=== PATIENT | female | born 1940 | race Caucasian/White ===

== ENCOUNTER 2019-07-29 10:13 | Outpatient (CLI) | payer MEDICARE, OTHER, SELFPAY ==
--- NOTE | 2019-07-29 10:14 | MM_ITS ---
WS: [id number] BILATERAL SCREENING DIGITAL MAMMOGRAM WITH CAD HISTORY: SCREENING COMPARISON: 07/22/2018 and 07/17/2017 Bilateral CC and MLO views submitted. Computer aided detection analyzed. Breast composition: There are scattered areas of fibroglandular density. No suspicious masses, microc alcifications or architectural distortion. Bilateral breast arterial calcifications. MM/[place] [id number] IMPRESSION: BI-RADS: 2-Benign FOLLOW UP: 1 Year Follow-up
== END 2019-07-29 10:14 | disposition home or self-care (01) ==
LOC: RADSHAW 10:13
PROVIDERS: Family Provider Family Medicine; PCP Registered Nurse; Visit Provider Registered Nurse
DX: Z12.31 Encounter for screening mammogram for malignant neoplasm of breast (principal)
CPT/HCPCS: 77067

== ENCOUNTER 2020-09-29 09:02 | Outpatient (CLI) | payer MEDICARE, OTHER, SELFPAY ==
--- NOTE | 2020-09-29 09:09 | MM_ITS ---
WS: [id number] BILATERAL SCREENING DIGITAL MAMMOGRAM WITH CAD HISTORY: SCREENING COMPARISON: 07/29/2019 and 04/14/2013 Bilateral CC and MLO views submitted. Computer aided detection analyzed. Breast composition: There are scattered areas of fibroglandular density. No suspicious masses, microc alcifications or architectural distortion. Bilateral breast arterial calcifications and scattered igor ign round calcifications. MM/[id number] IMPRESSION: BI-RADS: 2-Benign FOLLOW UP: 1 Year Follow-up
== END 2020-09-29 09:03 | disposition home or self-care (01) ==
LOC: RADSHAW 09:06
PROVIDERS: Family Provider Family Medicine; PCP Registered Nurse; Visit Provider Family Medicine
DX: Z12.31 Encounter for screening mammogram for malignant neoplasm of breast (principal)
CPT/HCPCS: 77067

== ENCOUNTER 2021-01-24 08:44 | Outpatient (RCR) | payer MEDICARE, OTHER, SELFPAY | END 2021-02-15 23:59 | disposition home or self-care (01) | LOC: SPT 08:44 | PROVIDERS: PCP Registered Nurse; Referring Provider Neurological Surgery; Visit Provider Neurological Surgery | DX: Z98.1 Arthrodesis status (principal) | CPT/HCPCS: 97110; 97162 ==

== ENCOUNTER 2021-02-16 06:00 | Outpatient (RCR) | payer MEDICARE, OTHER, SELFPAY | END 2021-03-18 23:59 | disposition home or self-care (01) | LOC: SPT 06:00 | PROVIDERS: PCP Registered Nurse; Visit Provider Neurological Surgery | DX: Z98.1 Arthrodesis status (principal) | CPT/HCPCS: 97110 ==

== ENCOUNTER 2021-02-22 10:34 | Outpatient (CLI) | payer MEDICARE, OTHER, SELFPAY ==
[2021-02-22 11:40] LABS: Alanine Aminotransferase 13 U/L (0-33); Aspartate Amino Transferase 15 U/L (0-32)
== END 2021-02-22 10:35 | disposition home or self-care (01) ==
PROVIDERS: PCP Registered Nurse; Visit Provider Podiatrist Foot & Ankle Surgery
DX: L60.3 Nail dystrophy (principal)
CPT/HCPCS: 84450; 84460

== ENCOUNTER → 2021-11-21 08:49 | Outpatient (BNVA) | payer MEDICARE, OTHER, SELFPAY | PROVIDERS: PCP Registered Nurse; Visit Provider Podiatrist Foot & Ankle Surgery | DX: E11.42 Type 2 diabetes mellitus with diabetic polyneuropathy (principal); B35.1 Tinea unguium; M21.611 Bunion of right foot; M21.612 Bunion of left foot | CPT/HCPCS: 99214 ==

== ENCOUNTER → 2022-02-14 13:19 | Outpatient (BNVA) | payer MEDICARE, OTHER, SELFPAY | PROVIDERS: PCP Family Medicine; Visit Provider Orthopaedic Surgery | DX: M48.062 Spinal stenosis, lumbar region with neurogenic claudication (principal); M47.816 Spondylosis without myelopathy or radiculopathy, lumbar region | CPT/HCPCS: 72120; 99204 ==

== ENCOUNTER → 2022-03-12 11:02 | Outpatient (BNVA) | payer MEDICARE, OTHER, SELFPAY | PROVIDERS: PCP Family Medicine; Visit Provider Orthopaedic Surgery | DX: M48.062 Spinal stenosis, lumbar region with neurogenic claudication (principal) | CPT/HCPCS: 99213 ==

== ENCOUNTER 2022-03-13 08:53 | Outpatient (CLI) | payer MEDICARE, OTHER, SELFPAY ==
--- NOTE | 2022-03-13 09:00 | MM_ITS ---
WS: [id number] SCREENING DIGITAL TOMOSYNTHESIS MAMMOGRAM WITH CAD HISTORY: SCREENING COMPARISON: 09/29/2020, 07/29/2019 Bilateral CC and MLO with tomosynthesis views submitted. Synthetic mammography reviewed. Computer aid ed detection analyzed. Breast composition: There are scattered areas of fibroglandular density. No suspicious masses, microc alcifications or architectural distortion. Densely calcified breast arteries. No suspicious mass or c alcification. MM/[place] [id number] IMPRESSION: BI-RADS: 2-Benign FOLLOW UP: 1 Year Follow-up
== END 2022-03-13 08:54 | disposition home or self-care (01) ==
PROVIDERS: PCP Family Medicine; Visit Provider Family Medicine
DX: Z12.31 Encounter for screening mammogram for malignant neoplasm of breast (principal)
CPT/HCPCS: 77063; 77067

== ENCOUNTER → 2022-04-01 08:55 | Outpatient (BNVA) | payer MEDICARE, OTHER, SELFPAY | PROVIDERS: PCP Family Medicine; Visit Provider Podiatrist Foot & Ankle Surgery | DX: B35.3 Tinea pedis (principal); E11.42 Type 2 diabetes mellitus with diabetic polyneuropathy; B35.1 Tinea unguium; M21.611 Bunion of right foot; M21.612 Bunion of left foot; E11.8 Type 2 diabetes mellitus with unspecified complications | CPT/HCPCS: 99204 ==

== ENCOUNTER 2022-06-11 10:22 | Outpatient (CLI) | payer MEDICARE, OTHER, SELFPAY ==
--- NOTE | 2022-06-11 10:32 | XR_ITS ---
WS: [email or web address] Exam: XR shoulder RT min 2V* [id number] Date/Time of Exam: 06/11/2022 10:41 AM Reason For Exam: CHRONIC R SHOULDER PAIN No acute fracture or dislocation. 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 Unremarkable soft tissues. XR/XR shoulder RT min 2V* [id number] IMPRESSION: 1. No fracture or dislocation. 2. 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
== END 2022-06-11 10:23 | disposition home or self-care (01) ==
PROVIDERS: PCP Family Medicine; Visit Provider Nurse Practitioner Family
DX: M19.011 Primary osteoarthritis, right shoulder (principal); G89.29 Other chronic pain
CPT/HCPCS: 73030

== ENCOUNTER → 2022-07-30 11:30 | Outpatient (BNVA) | payer MEDICARE, OTHER, SELFPAY | PROVIDERS: PCP Family Medicine; Visit Provider Podiatrist Foot & Ankle Surgery | DX: E11.42 Type 2 diabetes mellitus with diabetic polyneuropathy (principal); L60.8 Other nail disorders; B35.3 Tinea pedis; B35.1 Tinea unguium; M21.611 Bunion of right foot; M21.612 Bunion of left foot; E11.8 Type 2 diabetes mellitus with unspecified complications | CPT/HCPCS: 99214 ==

== ENCOUNTER 2022-09-03 14:06 | Outpatient (CLI) | payer MEDICARE, OTHER, SELFPAY ==
--- NOTE | 2022-09-03 14:24 | XR_ITS ---
WS: [email or web address] KUB, AP view, 09/03/2022 Clinical Data: CHRONIC IDIOPATHIC CONSTIPATION Comparison: None. Findings: No abnormal intraabdominal masses or calcifications are seen. There is no dilatated small bowel or ev idence of obstruction. There is a large amount of fecal material in the ascending colon. There is air in the small bowel and colon. XR/XR abdomen 1V* [id number] Impression: Moderate generalized ileus with large amount of fecal material in ascending col on.
== END 2022-09-03 14:07 | disposition home or self-care (01) ==
LOC: RAD 14:16
PROVIDERS: PCP Family Medicine; Visit Provider Nurse Practitioner Family
DX: K59.09 Other constipation (principal)
CPT/HCPCS: 74018

== ENCOUNTER → 2022-09-11 09:05 | Outpatient (BNVA) | payer MEDICARE, OTHER, SELFPAY | PROVIDERS: PCP Family Medicine; Visit Provider Dermatology | DX: Z48.02 Encounter for removal of sutures (principal) | CPT/HCPCS: 99024 ==

== ENCOUNTER → 2022-12-05 13:43 | Outpatient (BNVA) | payer MEDICARE, OTHER, SELFPAY | PROVIDERS: PCP Family Medicine; Visit Provider Dermatology | DX: L57.0 Actinic keratosis (principal); L82.1 Other seborrheic keratosis; L57.8 Other skin changes due to chronic exposure to nonionizing radiation; Z85.828 Personal history of other malignant neoplasm of skin | CPT/HCPCS: 17000; 99213 ==

== ENCOUNTER 2023-01-08 09:56 | Outpatient (CLI) | payer MEDICARE, OTHER, SELFPAY ==
--- NOTE | 2023-01-08 10:11 | XR_ITS ---
WS: [email or web address] EXAMINATION: XR chest 2V* [id number] REASON FOR EXAM: ACUTE BRONCHITIS DUE TO OTHER SPECIFIED ORGANISMS COMPARISON: 12/21/2010 ORDER DATE: 01/08/2023 10:13 AM FINDINGS: The lungs are clear of infiltrate. The cardiac and mediastinal outlines are unremarkable with athe rosclerotic aortic change. There are no significant pleural effusions . No significant abnormalities are noted in the spine or remainder of the bony thorax. IMPRESSION: NO ACUTE PULMONARY CHANGE.
== END 2023-01-08 09:57 | disposition home or self-care (01) ==
PROVIDERS: PCP Family Medicine; Visit Provider Nurse Practitioner Family
DX: J20.8 Acute bronchitis due to other specified organisms (principal)
CPT/HCPCS: 71046

== ENCOUNTER 2023-04-09 12:02 | Outpatient (CLI) | payer MEDICARE, OTHER, SELFPAY ==
--- NOTE | 2023-04-09 12:00 | MM_ITS ---
WS: [email or web address] BILATERAL SCREENING DIGITAL TOMOSYNTHESIS MAMMOGRAM WITH CAD HISTORY: SCREENING COMPARISON: 03/13/2022, 09/29/2020 and 07/29/2019 Bilateral CC and MLO views with tomosynthesis and synthetic mammography submitted. Computer aided det ection analyzed. Breast composition: There are scattered areas of fibroglandular density. No suspicious masses, microc alcifications or architectural distortion. Moderate benign bilateral breast arterial calcifications a nd round punctate calcifications. IMPRESSION: MM/[place] [id number] BI-RADS: 2-Benign FOLLOW UP: 1 Year Follow-up
== END 2023-04-09 12:03 | disposition home or self-care (01) ==
LOC: MOBLMAM 12:04
PROVIDERS: PCP Family Medicine; Visit Provider Family Medicine
DX: Z12.31 Encounter for screening mammogram for malignant neoplasm of breast (principal)
CPT/HCPCS: 77063; 77067

== ENCOUNTER 2023-05-27 10:49 | Observation (INO) | payer MEDICARE, OTHER, SELFPAY ==
[2023-05-27] VITALS (10 sets, daily range): BP systolic 130–189; BP diastolic 67–99; PULSE 50–90; RESP 12–18; TEMP 36.6–36.8; O2SAT 93–98; BMI 27.9
--- NOTE | 2023-05-27 11:00 | ECG_ITS ---
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 Measurements Intervals [place] Rate: 71 P: 14 [place]: 146 QRS: 10 QRSD: 82 T: 37 QT: 368 QTc: 402 Interpretive Statements SINUS RHYTHM POSSIBLE ANTERIOR MYOCARDIAL INFARCTION , PROBABLY OLD [30 ms Q WAVE IN V3/V4, OR R < 0.2 mV IN V4] No previous ECG available for comparison Electronically Signed On 05-27-2023 21:38:45 FLORAL SPECIALIST by Martha Sorto M.D. [id number]
--- NOTE | 2023-05-27 11:36 | XRR_ITS ---
PROCEDURE INFORMATION: Exam: XR Chest Exam date and time: 05/27/2023 12:19 PM Age: 82 years old Clinical indication: Pain; Left-sided; Additional info: Left sided cp and left shoulder pain TECHNIQUE: Imaging protocol: Radiologic exam of the chest. Views: 1 view. COMPARISON: CR XR chest 2V* [id number] 01/08/2023 10:14 AM FINDINGS: Lungs: Clear. Pleural spaces: No pleural effusion identified. Heart/Mediastinum: The heart is not enlarged. The mediastinum is not enlarged. Bones/joints: No acute osseous abnormality identified. Hardware related to previous cervical spinal surgery is partially visualized. XR/XR chest 1V portable [id number] IMPRESSION: No acute cardiopulmonary abnormality identified.
--- NOTE | 2023-05-27 11:36 | CT_ITS ---
WS: [email or web address] CT CERVICAL SPINE TECHNIQUE: Noncontrast CT of the cervical spine with coronal and sagittal reformatted images. CLINICAL INFORMATION: b/l fingers paresthesias and left shoulder pain COMPARISON: None. DLP: 182.[address] scans at [facility] use at least one of these dose optimization techniques: automated e xposure control; mA and/or kV adjustment per patient size (includes targeted exams where dose is matc hed to clinical indication); or iterative reconstruction. FINDINGS: Straightening of the normal cervical lordosis. Prior ACDF C4-5. Bony fusion C5-6. Slight anterolisth esis C7 on T1. Normal craniocervical junction. Normal C1-C2 articulation. Dens is normal in appearanc e. Normal occipital condyles. No high-grade spinal canal narrowing. Normal C1 ring. No evidence of ac [place] fracture or dislocation. C2-C3: Normal. C3-C4: Mild facet arthropathy. Mild RIGHT bony foraminal narrowing. Tiny central protrusion with mild central canal stenosis. C4-C5: Disc osteophytic ridging. Mild bilateral bony foraminal narrowing. Spinal canal is patent. C5-C6: Disc osteophytic ridging. Mild facet arthropathy. Spinal canal and foramen are patent. C6-C7: Disc osteophytic ridging. Mild central canal stenosis. Moderate LEFT and mild RIGHT bony trinh inal narrowing. C7-T1: Slight anterolisthesis. Spinal canal and foramen are patent. Visualized posterior nasopharynx: Normal. Prevertebral soft tissues: Normal. IMPRESSION: 1. Prior ACDF C4-C5 with interbody fusion graft. Hardware appears intact. Bony fusion C5-6. 2. Mild central canal stenosis C3-C4 with a small central disc protrusion. 3. Mild central canal stenosis C6-7. 4. Mild to moderate bony foraminal narrowing described above.
--- NOTE | 2023-05-27 11:38 | ED_ITS ---
HPI - Chest Pain 2 General: Chief Complaint: Chest Pain Stated Complaint: Cp, stroke symtomps Time Seen by Provider: 05/27/23 11:10 History of Present Illness: 82-year-old female presents the emergenc y department complaining of frequent intermittent sharp left-sided chest pain for the last 5 days or so. She also has a painful almost numb feeling around her left shoulder and left upper arm with paresthesias in her bilateral fingers. Patient reports the pain actually started with a sharp pain in the left upper quadrant radiating straight back to her left shoulder blade sometime last week on Friday or . She is fuzzy with the timeline but notes that after the sharp pain in the left upper quadrant going to the left shoulder blade region she then developed pain in the left shoulder and left upper chest. She reports no known aggravating or alleviating factors. She tried to most everything she could think of. She denies any shortness of breath, diaphoresis, vomiting. She notes that she did get nauseated at one point but thinks it was because she was fasting rather than related to the chest pain. She denies any palpitations, lightheadedness, pain with inspiration, hemoptysis, swelling, orthopnea, dyspnea on exertion, fever, chills, trauma, falls, rashes, wounds. She reports no known history of coronary artery disease but has it in her family. She also has a history of cervical spine stenosis and had to have a fusion a few years ago. During the review of systems she also endorses chronic constipation for over 1 year. She uses 1 tablespoon of MiraLAX in the morning and an equate [id number] stool softener at night. She feels like she is eating more than she is putting out. Nonetheless, she has not had any abdominal pain, bloating, or trouble passing gas. Associated symptoms: Deny abdominal pain, dyspnea, fever(s), syncope or vomiting Review of Systems 2 General: Reports: 10 or more systems reviewed and unremarkable except in HPI and below Const: Denies: fever(s), chills or body aches Eyes: Denies: change in vision ENMT: Denies: throat pain Card: Denies: edema or syncope Resp: Denies: dyspnea or productive cough GI: Denies: abdominal pain, vomiting or diarrhea : Denies: flank pain, dysuria or urinary frequency Musc: Denies: neck pain, back pain, extremity pain or extremity swelling Skin/Breast: Denies: rash or erythema Neuro: Denies: headache(s), weakness in extremities or lack of coordination PFSH ED 2 PFSH: Medical History Asthma History of malignant melanoma History of nonmelanoma skin cancer HTN (hypertension) Hyperlipidemia Hypothyroid Surgical History H/O: hysterectomy Social History Smoking and tobacco/nicotine status: never used tobacco/nicotine Alcohol intake: never Physical Exam 2 Narrative: EXAM NARRATIVE: This is a well-appearing nontoxic female who is sitting sideways on the bed holding herself up without any difficulty. She has a normal mental status and answers all of her own questions. No other historian. She reports no chest pain at this time. Examination is notable for cervical kyphosis, subjective tingling in her fingertips, subjective pain in the left shoulder. Examination of the chest shoulder and arms does not reveal any tenderness, wounds, rashes, swelling, trauma, or other signs of acute pathology. She is able to do fine motor movements normally. She does not have any tenderness of the C-spine but it is quite kyphotic. Examination of the abdomen is soft nontender, nondistended, without any tympany to percussion. No JVD, no crackles, no orthopnea on exam. no pitting edema. Const: COMMON NORMALS: no limitations, alert and well nourished EXAM LIMITATIONS: no altered mental status HENMT: COMMON NORMALS: normocephalic, atraumatic and external ears normal H EAD & SCALP: normocephalic and atraumatic EXTERNAL EAR: Yes external ears normal MOUTH: no muffled voice Eye: COMMON NORMALS: EOMs intact bilaterally, conjunctivae normal and no scleral icterus CONJUNCTIVA: Yes conjunctivae normal Neck/C-Spine: COMMON NORMALS: no JVD GENERAL: Yes normal visual inspection and Yes trachea midline Resp: COMMON NORMALS: normal respiratory effort, No use of accessory muscles and clear to auscultation bilaterally AUSCULTATION: clear to auscultation bilaterally Cardio: COMMON NORMALS: no JVD, regular rate and regular rhythm RATE: r egular rate RHYTHM: regular rhythm GI: COMMON NORMALS: Soft to palpation and non-tender PALPATION: Yes Soft to palpation and No Guarding due to palpation present (GI) Neuro: COMMON NORMALS: moves all extremities and no focal motor deficits S ENSORIUM/ORIENTATION: Yes alert SPEECH: speech normal Psych: COMMON NORMALS: mental status grossly normal, Normal thought process present, cooperative, normal affect and speech normal SPEECH: Yes normal speech THOUGHT PROCESS: Normal thought process present Skin: COMMON NORMALS: turgor normal and no jaundice GENERAL SKIN EXAM: t urgor normal Course 2 Vital Signs: Vital signs: Vital Signs Temperature 97.9 F 05/27/23 11:03 Pulse Rate 90 05/27/23 13:00 Respiratory Rate 18 05/27/23 13:00 Blood Pressure 170/99 05/27/23 13:00 Pulse Oximetry 98 05/27/23 13:00 Oxygen Delivery Me thod Room Air 05/27/23 13:00 MDM - Chest Pain Medical Decision Making Differential diagnosis is broad. The chest pain seems atypical for cardiac but she is also elderly and female so must consider atypical presentations. ACS will be placed on the differential diagnosis. Other considerations include occult pneumonia, neoplastic process, pleurisy, chest wall etiology, atypical pancreatitis, referred pain from the diaphragm, stomach, colon, esophagus. Cervical stenosis with associated claudication type pain in the shoulder and upper chest with tingling in the fingers. Of note, the patient's abdomen is soft, nontender, nondistended, no guarding, no masses. UPDATE [address] was some mild [address] changes. No comparison is available. Troponin is 13. Dimer negative. AST and ALT minimally elevated. Renal function normal. No significant electrolyte problems. Hemoglobin and white blood cell count normal. Chest x-ray AP upright within normal limits. CT cervical spine with expected findings but nothing critical. Patient has a heart score of 6. Most recent provocative testing was greater than 5 years ago. On reassessment she reports she has a ache in her chest rated as mild. Discussed potential causes of her chest pain as well as the ER findings. Discussed slightly abnormal EKG with no comparison. Discussed options such as outpatient referral and workup by cardiology versus observation admission and cardiology consultation for possible provocative testing. Patient reports that she would feel more comfortable with getting this worked up now, even if it turns out negative. I did discuss her cervical spine abnormalities and how there are other potential causes beyond cardiac etiology. Patient is aware of this. For her constipation, I have ordered 34 g of MiraLAX to start with. Discussed case with Dr. Valencia for admission Lab Data 05/27/23 11:40 05/27/23 11:40 Radiology Impressions Chest X-Ray 05/27/23 11:36 IMPRESSION: No acute cardiopulmonary abnormality identified. Laboratory Results WBC 6.74 10^3/uL (3.29-11.43) 05/27/23 11:40 RBC 5.11 10^6/uL (3.85-5.65) 05/27/23 11:40 Hgb 15.90 g/dL (11.27-16.99) 05/27/23 11:40 Hct 47.0 % (36-47) 05/27/23 11:40 MCV 92.0 fl (85-98) 05/27/23 11:40 MCH 31.1 pg (27-33) 05/27/23 11:40 MCHC 33.8 g/dL (30-55) 05/27/23 11:40 RDW 12.5 % (12.1-15.1) 05/27/23 11:40 Plt Count 198 10^3/cmm (157-399) 05/27/23 11:40 MPV 10.1 fL (7.4-10.4) 05/27/23 11:40 Neut % (Auto) 53.9 % 05/27/23 11:40 Lymph % (Auto) 31.5 % 05/27/23 11:40 [place] % (Auto) 7.4 % 05/27/23 11:40 Eos % (Auto) 5.6 % 05/27/23 11:40 Baso % (Auto) 1.5 % 05/27/23 11:40 Neut # (Auto) 3.63 10^3/uL (1.8-7.7) 05/27/23 11:40 Lymph # (Auto) 2.1 10^3/uL (0.8-4.8) 05/27/23 11:40 [place] # (Auto) 0.5 10^3/uL (0.2-0.9) 05/27/23 11:40 Eos # (Auto) 0.4 10^3/uL (0.0-0.8) 05/27/23 11:40 Baso # (Auto) 0.1 10^3/uL (0.0-0.1) 05/27/23 11:40 Nucleated RBC % (auto) 0 % 05/27/23 11:40 Nucleated RBCs # 0.0 /100WBC 05/27/23 11:40 D-Dimer 0.48 ug/mLFEU (0-0.59) 05/27/23 11:40 Sodium 139 mmol/L (136-145) 05/27/23 11:40 Potassium 4.0 mmol/L (3.5-5.1) 05/27/23 11:40 Chloride 103 mmol/L (98-107) 05/27/23 11:40 Carbon Dioxide 23 mmol/L (22-29) 05/27/23 11:40 Anion Gap 17.0 (5-19) 05/27/23 11:40 BUN 11 mg/dL (8-23) 05/27/23 11:40 Creatinine 0.6 mg/dL (0.5-0.9) 05/27/23 11:40 GFR Calculation Not Reportable 05/27/23 11:40 Glucose 120 mg/dL (65-115) H 05/27/23 11:40 Calculated Osmolality 289 mOsm/kg (285-295) 05/27/23 11:40 Calcium 9.8 mg/dL (8.5-10.5) 05/27/23 11:40 Total Bilirubin 0.7 mg/dL (0.15-1.2) 05/27/23 11:40 AST 48 U/L (0-32) H 05/27/23 11:40 ALT 50 U/L (0-33) H 05/27/23 11:40 Alkaline Phosphatase 95 U/L (35-105) 05/27/23 11:40 Troponin T Baseline 13 ng/L (0-10) H 05/27/23 11:40 NT-Pro-B Natriuret Pep 109 pg/mL (0-450) 05/27/23 11:40 Total Protein 7.2 g/dL (6.6-8.7) 05/27/23 11:40 Albumin 4.5 g/dL (3.5-5.2) 05/27/23 11:40 Globulin 2.7 g/dL (1.3-4.6) 05/27/23 11:40 Lipase 25 U/L (13-60) 05/27/23 11:40 All radiology interpretation(s) finalized by discharge ED provider radiology interpretation(s): EP interpretation: Portable chest x-ray AP upright was performed. Cardiomediastinal silhouette within normal limits, lung mcdonald normal, no pneumothorax, effusions, pulmonary edema. Osseous structures appear grossly normal. No air under the diaphragm visualized. CT cervical spine interpretation by radiologist: IMPRESSION: 1. Prior ACDF C4-C5 with interbody fusion graft. Hardware appears intact. Bony fusion C5-6. 2. Mild central canal stenosis C3-C4 with a small central disc protrusion. 3. Mild central canal stenosis C6-7. 4. Mild to moderate bony foraminal narrowing described above. HEART Score is 6. Patient reports she does have a history of an angiogram many many years ago. She does not know the results. She reports she is already called her provider team and they wanted her to get checked out in the emergency department. I talked to her about admission with cardiology consultation for possible stress test versus coronary CTA versus angiogram, etc. VS discharge and outpatient management. Patient reports she has been having so much discomfort that she like to go ahead and get it taken care of now. I have paged the hospitalist for admission. EKG Data EKG 1: Interpretation: EP interpretation: EKG obtained at 11 AM. Sinus rhythm, rate 71, minimal J- point depression in 1 and 2 and aVF and V5 and V6. Nonspecific T wave changes [address] segment elevations. Poor R wave progression may indicate prior anterior infarction. No ectopy. QTc normal. QRS narrow. No comparison EKG. Discharge Plan Discharge Patient Disposition: Placed in Observation Clinical Impression: Chest pain at rest, Chest pain with moderate risk for cardiac etiology, Abnormal ECG, ST segment depression, Chronic constipation Coding Level of Care Code ED Back Tender Fourdrinier for Zonia Sepulveda
--- NOTE | 2023-05-27 11:40 | PC.NURSE ---
Pt on bedside environmental monitoring specialist
[2023-05-27 11:57] LABS: Basophils # 0.1 10^3/uL (0.0-0.1); Basophils % 1.5 %; Eosinophils # 0.4 10^3/uL (0.0-0.8); Eosinophils % 5.6 %; Lymphocytes # 2.1 10^3/uL (0.8-4.8); Lymphocytes % 31.5 %; Mean Corpuscular HGB Conc 33.8 g/dL (30-55); Mean Corpuscular Hemoglobin 31.1 pg (27-33); Mean Platelet Volume 10.1 fL (7.4-10.4); Monocytes # 0.5 10^3/uL (0.2-0.9); Monocytes % 7.4 %; Neutrophils # 3.63 10^3/uL (1.8-7.7); Neutrophils % 53.9 %; Nucleated Red Blood Cells % 0 %; Platelet Count 198 10^3/cmm (157-399); Red Blood Count 5.11 10^6/uL (3.85-5.65); Red Cell Distribution Width 12.5 % (12.1-15.1); White Blood Count 6.74 10^3/uL (3.29-11.43)
--- NOTE | 2023-05-27 12:07 | ECG_ITS ---
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 Measurements Intervals [place] Rate: 59 P: 89 [place]: 168 QRS: -7 QRSD: 78 T: 8 QT: 385 QTc: 383 Interpretive Statements SINUS BRADYCARDIA POSSIBLE ANTERIOR MYOCARDIAL INFARCTION , PROBABLY OLD [30 ms Q WAVE IN V3/V4, OR R < 0.2 mV IN V4] Compared to ECG 05/27/2023 11:00:39 Sinus rhythm no longer present Myocardial infarct finding still present Electronically Signed On 05-27-2023 21:48:01 YARD MANAGER by Martha Sorto M.D. [id number]
[2023-05-27 12:15] LABS: D Dimer 0.48 ug/mLFEU (0-0.59)
[2023-05-27 12:20] LABS: Troponin(5th) Baseline 13 ng/L (0-10)
[2023-05-27 12:27] LABS: Alanine Aminotransferase 50 U/L (0-33); Albumin Level 4.5 g/dL (3.5-5.2); Alkaline Phosphatase 95 U/L (35-105); Aspartate Amino Transferase 48 U/L (0-32); Blood Urea Nitrogen 11 mg/dL (8-23); Calcium 9.8 mg/dL (8.5-10.5); Carbon Dioxide 23 mmol/L (22-29); Chloride 103 mmol/L (98-107); Globulin 2.7 g/dL (1.3-4.6); Glucose 120 mg/dL (65-115); Lipase 25 U/L (13-60); NT Pro B Type Natriuretic Pept 109 pg/mL (0-450); Osmolality Calculated 289 mOsm/kg (285-295); Sodium 139 mmol/L (136-145); Total Bilirubin 0.7 mg/dL (0.15-1.2); Total Protein 7.2 g/dL (6.6-8.7)
[2023-05-27] MEDS: aspirin 81 mg Chew Tablet 324 MG PO (13:22)
[2023-05-27] MEDS: polyethylene glycol 3350 Pkt 17 gm 34 GM PO (13:23)
[2023-05-27] MEDS: cloNIDine 0.1 mg Tablet PO (13:23)
[2023-05-27 13:40] LABS: Troponin 5 2HR 12.26 ng/L (0-10)
[2023-05-27 13:43] LABS: Troponin 5 2HR Delta -0.74 ABS# (0-10)
--- NOTE | 2023-05-27 15:17 | P.HP_ITS ---
Providers/Chief Complaint 2 Admitting Physician: Mary Valencia MD Primary Care Provider: Vilma Carter DO Chief Complaint: Cp, stroke symtomps History of Present Illness Mary Merida is a 82 year old female who presented to the emergency room with a chief complaint of chest pain. The pain started underneath her left breast and radiated to her left shoulder blade. The pain was constant for 3 or 4 days initially then began to come and go. It radiates into her neck and shoulder area at times. She describes it as an achiness, not really a pain. She did not try any qjqd-nwc-oyvaqtc pain relievers. With the discomfort bothering her as long as it has been she called her primary care provider Dr. Carter today who told her to come to the emergency room for further evaluation. Work-up in the emergency room showed some nonspecific changes on EKG and a baseline troponin of 13. Blood pressure was noted to be a little bit high. Also noted to be bradycardic. She received some aspirin and clonidine in the ER. She has a calculated heart score of 6. She has a known history of hypertension and hyperlipidemia along with borderline diabetes. Her sister had open heart surgery several years ago for heart disease. She is approximately 18 months older than Ms. Hernandez. With her age and presentation, request was made for further evaluation in the hospital setting. Mrs. Merida has no associated shortness of breath, chest pain, clamminess or diaphoresis. She has had a little bit of dizziness. No palpitations. Never had any symptoms quite like this. She denies fever, upper respiratory symptoms, cough. No pleuritic type chest pain. No orthopnea or PND. She has had some ankle edema at times but currently does not. No reports of any bleeding. No dysuria or urinary frequency. Today does have chronic constipation that has been worse lately and not really responding much to MiraLAX which she has been taking. Last bowel movement was a small amount of hard stool yesterday. She has had a colonoscopy in the past, which was normal. She does complain of significantly dry skin. Her weight has been fairly stable since she lost weight intentionally back in 2019. She is pretty sure that her thyroid function was checked in March by her PCP. She keeps an eye on her blood pressure and heart rate at home and says that they usually run pretty good. Her gait is chronically unstable. She uses a cane to walk around and hold onto garcia. She has a known peripheral neuropathy. She has a history neck surgery. Denies new issues with her neck. Has never hide identified radicular pain from her neck. She has some lumbar stenosis and did well with therapy not requiring any surgical intervention for pain related to that. This discomfort she is experiencing is unlike anything she is ever had before. Initial troponin 13. Twelve-lead EKG with only nonspecific changes but no priors for comparison. Mrs Merida lives alone but is able to attend to her activities of daily living without much assistance. When it is not cold out, she describes being active . Still drives. Review of Systems 2 General: Reports: Other (ROS as per HPI or as otherwise noted here) Medications/Allergies Home Medications Medication Instructions Recorded Confirmed Last Taken Type aspirin 81 mg tablet,delayed 81 mg PO DAILY 10/12/20 05/27/23 05/26/23 History release (Adult Aspirin Regimen) budesonide-formoterol HFA 80 2 puff inhalation BID 10/12/20 05/27/23 05/27/23 History mcg-4.5 mcg/actuation aerosol inhaler (Symbicort) hydrochlorothiazide 50 mg tablet 50 mg PO DAILY 10/12/20 05/27/23 05/27/23 History levothyroxine 75 mcg capsule 75 mcg PO DAILY 10/12/20 05/27/23 05/27/23 History brimonidine 0.2 % eye drops 1 drp ophthalmic (eye) Q8H 03/12/22 05/27/23 05/27/23 History timolol 0.5 % eye drops 1 drp ophthalmic (eye) BID 03/12/22 05/27/23 05/27/23 History atorvastatin 40 mg tablet 40 mg PO QPM 05/27/23 05/27/23 05/26/23 History fluticasone 250 mcg-salmeterol 50 1 ea inhalation BID 05/27/23 05/27/23 Unknown History mcg/dose blistr powdr for inhalation (Advair Diskus) latanoprost 0.005 % eye drops 1 drp ophthalmic (eye) QPM 05/27/23 05/27/23 05/26/23 History omega 3-yin-npk-fish oil 1,000 mg 1 cap PO DAILY 05/27/23 05/27/23 05/27/23 History (120 mg-180 mg) capsule (Fish Oil) Allergies Allergy/AdvReac Type Severity Reaction Status Date / Time gabapentin [From Neurontin] Allergy not Verified 05/27/23 11:03 function morphine Allergy rooms spin Verified 05/27/23 11:03 Sulfa (Sulfonamide Allergy rash Verified 05/27/23 11:03 Antibiotics) PFSH Acute 2 PFSH: Medical History (Updated 05/27/23 @ 18:26 by Mary Valencia MD) Peripheral neuropathy Glaucoma Borderline diabetes 2 para 2 History of nonmelanoma skin cancer History of malignant melanoma Asthma HTN (hypertension) Hypothyroid Hyperlipidemia Surgical History (Updated 05/27/23 @ 18:06 by Mary Valencia MD) History of neck surgery H/O: hysterectomy Family History (Updated 05/27/23 @ 18:15 by Mary Valencia MD) Sister History of open heart surgery Quadruple bypass by Dr. Helton in 2016 CAD (coronary artery disease) Other Heart disease Social History (Updated 05/27/23 @ 17:55 by Mary Valencia MD) Smoking and tobacco/nicotine status: never used tobacco/nicotine Alcohol intake: never Substance/Drug Use: never Additional social history: daughter lives in [place], uses a cane to ambulate Household members: none Vitals/I&O/Wt Last Vital Signs Temp 97.9 F 05/27/23 11:03 Pulse 53 L 05/27/23 14:30 Resp 15 05/27/23 14:30 BP 149/84 05/27/23 14:30 Pulse Ox 94 05/27/23 14:30 O2 Del Method Room Air 05/27/23 14:30 Weight last 48 hrs Weight 73.936 kg Physical Exam 2 Narrative: Patient is awake and alert, able to provide history. Normocephalic. Hair and make-up are noted. Oropharynx is clear. Neck is supple. No reproducible chest pain on palpation of shoulders or chest wall. Lungs are clear to auscultation bilaterally without any rales rhonchi or wheezes. Cardiovascular exam reveals a regular rhythm. Pulses are equal. Abdomen is soft. No pitting edema. Some chronic vascularity/stasis changes distally. Onychomycosis noted but brisk capillary refill. Data 05/27/23 11:40 05/27/23 11:40 Other Labs: Radiology Impressions Chest X-Ray 05/27/23 11:36 IMPRESSION: No acute cardiopulmonary abnormality identified. Cervical spine CT 05/27/2023 FINDINGS: Straightening of the normal cervical lordosis. Prior ACDF C4-5. Bony fusion C5- 6. Slight anterolisthesis C7 on T1. Normal craniocervical junction. Normal C1-C2 articulation. Dens is normal in appearance. Normal occipital condyles. No high- grade spinal canal narrowing. Normal C1 ring. No evidence of acute fracture or dislocation. C2-C3: Normal. C3-C4: Mild facet arthropathy. Mild RIGHT bony foraminal narrowing. Tiny central protrusion with mild central canal stenosis. C4-C5: Disc osteophytic ridging. Mild bilateral bony foraminal narrowing. Spinal canal is patent. C5-C6: Disc osteophytic ridging. Mild facet arthropathy. Spinal canal and foramen are patent. C6-C7: Disc osteophytic ridging. Mild central canal stenosis. Moderate LEFT and mild RIGHT bony foraminal narrowing. C7-T1: Slight anterolisthesis. Spinal canal and foramen are patent. Visualized posterior nasopharynx: Normal. Prevertebral soft tissues: Normal. IMPRESSION: 1. Prior ACDF C4-C5 with interbody fusion graft. Hardware appears intact. Bony fusion C5-6. 2. Mild central canal stenosis C3-C4 with a small central disc protrusion. 3. Mild central canal stenosis C6-7. 4. Mild to moderate bony foraminal narrowing described above. Laboratory Results WBC 6.74 10^3/uL (3.29-11.43) 05/27/23 11:40 RBC 5.11 10^6/uL (3.85-5.65) 05/27/23 11:40 Hgb 15.90 g/dL (11.27-16.99) 05/27/23 11:40 Hct 47.0 % (36-47) 05/27/23 11:40 MCV 92.0 fl (85-98) 05/27/23 11:40 MCH 31.1 pg (27-33) 05/27/23 11:40 MCHC 33.8 g/dL (30-55) 05/27/23 11:40 RDW 12.5 % (12.1-15.1) 05/27/23 11:40 Plt Count 198 10^3/cmm (157-399) 05/27/23 11:40 MPV 10.1 fL (7.4-10.4) 05/27/23 11:40 Neut % (Auto) 53.9 % 05/27/23 11:40 Lymph % (Auto) 31.5 % 05/27/23 11:40 [place] % (Auto) 7.4 % 05/27/23 11:40 Eos % (Auto) 5.6 % 05/27/23 11:40 Baso % (Auto) 1.5 % 05/27/23 11:40 Neut # (Auto) 3.63 10^3/uL (1.8-7.7) 05/27/23 11:40 Lymph # (Auto) 2.1 10^3/uL (0.8-4.8) 05/27/23 11:40 [place] # (Auto) 0.5 10^3/uL (0.2-0.9) 05/27/23 11:40 Eos # (Auto) 0.4 10^3/uL (0.0-0.8) 05/27/23 11:40 Baso # (Auto) 0.1 10^3/uL (0.0-0.1) 05/27/23 11:40 Nucleated RBC % (auto) 0 % 05/27/23 11:40 Nucleated RBCs # 0.0 /100WBC 05/27/23 11:40 D-Dimer 0.48 ug/mLFEU (0-0.59) 05/27/23 11:40 Sodium 139 mmol/L (136-145) 05/27/23 11:40 Potassium 4.0 mmol/L (3.5-5.1) 05/27/23 11:40 Chloride 103 mmol/L (98-107) 05/27/23 11:40 Carbon Dioxide 23 mmol/L (22-29) 05/27/23 11:40 Anion Gap 17.0 (5-19) 05/27/23 11:40 BUN 11 mg/dL (8-23) 05/27/23 11:40 Creatinine 0.6 mg/dL (0.5-0.9) 05/27/23 11:40 GFR Calculation Not Reportable 05/27/23 11:40 Glucose 120 mg/dL (65-115) H 05/27/23 11:40 Calculated Osmolality 289 mOsm/kg (285-295) 05/27/23 11:40 Calcium 9.8 mg/dL (8.5-10.5) 05/27/23 11:40 Total Bilirubin 0.7 mg/dL (0.15-1.2) 05/27/23 11:40 AST 48 U/L (0-32) H 05/27/23 11:40 ALT 50 U/L (0-33) H 05/27/23 11:40 Alkaline Phosphatase 95 U/L (35-105) 05/27/23 11:40 Troponin T Baseline 13 ng/L (0-10) H 05/27/23 11:40 NT-Pro-B Natriuret Pep 109 pg/mL (0-450) 05/27/23 11:40 Total Protein 7.2 g/dL (6.6-8.7) 05/27/23 11:40 Albumin 4.5 g/dL (3.5-5.2) 05/27/23 11:40 Globulin 2.7 g/dL (1.3-4.6) 05/27/23 11:40 Lipase 25 U/L (13-60) 05/27/23 11:40 A&P Assessment and plan (1) Chest pain: Precordial chest pain with both typical and atypical features. She has nonspecific EKG changes and significant family history with her sister of a similar age having had quadruple bypass a few years ago. She has risk factors of hypertension and hyperlipidemia as well as borderline diabetes diagnosis. In addition to coronary vascular etiology of her symptoms, differential includes other vascular process, musculoskeletal both in the shoulder region and potentially from neck. Referred pain from abdominal source could also be considered with her worsening constipation though I do not get a sense that this is necessarily new. She has not had any associated symptoms with the discomfort and other than transient bradycardia and at times suboptimally controlled blood pressures vitals have been okay. (2) HTN (hypertension): Primary hypertension, chronically on hydrochlorothiazide, reports adequate blood pressure control when checked at home (3) Hyperlipidemia: Chronically on statin therapy along with fish oil (4) Borderline diabetes: By history, not on any medications. Blood sugars 120 today. (5) Peripheral neuropathy: Type unknown but involves hands and feet with feet most prominently affected. Walks with a cane. I suspect it is related to her borderline diabetes diagnosis. No recent change. (6) Hypothyroid: Acquired, on chronic levothyroxine. Believes last level check was in March and does not recall being notified of concerning results. (7) Glaucoma: Specific type of glaucoma not known. On several different eyedrops for management. Has chronically red eyes. No acute eye pain. (8) Chronic constipation: Chronically takes [id number]-xqzxbwp MiraLAX daily when needed. Progressively worsening issue for her. (9) Asthma: Has inhalers as needed, not acutely symptomatic. Plan Transient bradycardia, may be related to clonidine, but noted in past as well, only beta blockade is timolol opthalmic Mild elevation in tranaminases, normal BNP, may be related to medications such as statin, no recent labs for comparison Observation admission Continue serial cardiac enzymes and EKG Will check echocardiogram and gallant in order stress testing tomorrow given symptom presentation, risk factors and family history With peripheral neuropathy her gait is not very stable so Lexiscan ordered Continue home aspirin and statin therapy Given age and current complaints may want to consider change of antihypertensive agent but will wait and see results of stress testing and other workup before deciding Took hydrochlorothiazide today, further dosing currently held pending above Will check A1c and lipid panel If repeat blood sugars are elevated in the morning can consider some low-dose insulin but for now we will just watch Check TSH Continue current levothyroxine dosing Will continue home eyedrops Add scheduled and as needed laxative therapy monitoring response As needed breathing treatments Will be on telemetry monitoring Recheck liver enzymes in the morning VTE prophylaxis: Lovenox ordered GI Prophylaxis: PPI on chronically at home Telemetry: Currently ordered due to presentation Morales: not currently indicated Line(s): peripheral IVs Disposition plan: Home with outpatient follow up to primary care provider for recheck of blood pressure, potentially transaminases, blood sugar and ongoing symptoms. Depending on clinical course may need to follow-up with cardiology. Potentially may need adjustments to antihypertensive regimen. Code Status: Full Code currently Patient indicated that future code status would depend on her overall prognosis and if she were not able to talk and communicate with her family or care for herself she would probably not want that. Supportive care otherwise Findings, concerns and plans were discussed with patient and she was given an opportunity to ask questions Attestations 2 Medical Necessity Statement*: Currently anticipate a stay less than two midnights in this patient presenting with chest pain who has significant family history with her sister having had quadruple bypass surgery a few years ago along with personal history of hypertension and hyperlipidemia, borderline diabetes. Pain has both typical and atypical features with baseline troponin just above stated normal range and some nonspecific EKG changes. She is being admitted overnight for further monitoring, treatment as indicated and planned cardiac testing in the morning if remains stable. Other issues and plans as described. Coding Level of Care Code 39148 Moderate Time for a total of 60 minutes, includes reviewing past or interval history, examining/interviewing patient, placing orders, discussing plan of care with staff and documenting encounter Diagnoses Chest pain R07.9 HTN (hypertension) I10 Hyperlipidemia E78.5 Borderline diabetes R73.03 Peripheral neuropathy G62.9 Hypothyroid E03.9 Glaucoma H40.9 Chronic constipation K59.09 Asthma J45.909
--- NOTE | 2023-05-27 15:26 | ECG_ITS ---
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 Interpretive Statements NAME OF STUDY: LEXISCAN SESTAMIBI STRESS TEST INDICATION: Chest Pain; ekg changes; bradycardia PROCEDURE: At the baseline, the EKG revealed normal sinus rhythm with a normal ST Ts. Poor R wave progression. Nonspecific T wave changes. The baseline heart was 66 bpm with a blood pressue of 143/69 mm of Hg Lexiscan was infused over a period of 20 seconds. A total of 0.4 milligrams of Lexiscan was infused. The stress phase was continued for a total of 5 minutes. Heart rate at the end of the stress phase was 85 bpm with a blood pressure 134/62 mm of Hg. The EKG at the peak infusion revealed no significant changes. Sestamibi was injected 20 seconds after the Lexiscan infusion. Heart rate at the end of the recovery phase was 79 bpm with a blood pressure of 125/57 mm of Hg. CONCLUSION: 1. No significant EKG changes with the LexiScan infusion 2. No LexiScan induced chest pain or cardiac arrhythmia 3. Normal blood pressure and heart rate response 4. Sestamibi/sestamibi perfusion scan pending; see separate report. Electronically Signed On 05-30-2023 16:01:33 WIRE TWISTING MACHINE OPERATOR by Martha Sorto M.D. [id number]
--- NOTE | 2023-05-27 15:28 | USCV_ITS ---
Mary Merida Age: 82 Gender: F : 1940 Exam Date: 05/27/2023 18:19 Ordering Phys: Mary Valencia MD Technologist: JOSE Exam Location: [facility] Indication: chest pain, nonspecific ekg changes, bradycardia. No history of cardiac intervention per patient. BP: 135 / 67 HR: 57 Rhythm: Sinus Technical Quality: Adequate MEASUREMENTS (Male / Female) Normal Values 2D ECHO LV Diastolic Diameter PLAX 3.6 cm 4.2 - 5.9 / 3.9 - 5.3 cm LV Systolic Diameter PLAX 2.3 cm IVS Diastolic Thickness 1.4 cm 0.6 - 1.0 / 0.6 - 0.9 cm IVS Systolic Thickness 1.6 cm LVPW Diastolic Thickness 1.1 cm 0.6 - 1.0 / 0.6 - 0.9 cm LVPW Systolic Thickness 1.4 cm LVOT Diameter 1.7 cm LV Ejection Fraction 2D Teich 69.1 % LV Ejection Fraction MOD 2C 56.3 % LV Ejection Fraction 2C AL 56.1 % LA Diameter 3.0 cm LA Width 3.2 cm LA Height 4.9 cm RA Width 2.9 cm RA Height 4.6 cm Aorta at Sinotubular Diameter 2.9 cm IVC Diameter 1.4 cm M-MODE Aortic Annulus Diameter 2.9 cm LA Ao Ratio MM 1.0 MV E Point Septal Separation 0.5 cm DOPPLER AV Peak Velocity 106.0 cm/s LVOT Peak Velocity 73.0 cm/s AV Area Cont Eq vti 1.5 cm squared AV Area Cont Eq pk 1.6 cm squared MV Peak Velocity 101.0 cm/s MV Area PHT 3.1 cm squared Mitral E to A Ratio 0.8 MV E' Velocity 39.0 cm/s Mitral E to MV E' Ratio 11.4 Mitral E to LV E' Lateral Ratio 11.7 Mitral E to LV E' Septal Ratio 11.0 TR Peak Velocity 235.0 cm/s TR Peak Gradient 22.1 mmHg TV Peak E Velocity 35.0 cm/s Right Atrial Pressure 5.0 mmHg Pulmonary Artery Systolic Pressu 27.1 mmHg PV Peak Velocity 72.0 cm/s RV Acceleration Time 0.1 s RV Ejection Time 0.3 s RV AcT/ET 0.3 FINDINGS Left Ventricle Left ventricle is normal size. LV systolic function is normal with EF 55 to 60%. No regional wall motion abnormalities are seen. Grade 1 diastolic function. Right Ventricle Normal in size and function. Right Atrium Normal in size Left Atrium Normal in size Mitral Valve Structurally normal mitral valve. Trace mitral regurgitation Aortic Valve Structurally normal aortic valve.No significant stenosis or regurgitation. Tricuspid Valve Mild tricuspid regurgitation. Insufficient TR jet to calculate RVSP. Pulmonic Valve Not well visualized Pericardium Normal Aorta Normal in size IVC Normal in size CONCLUSIONS LV systolic function is normal with EF 55 to 60%. Grade 1 diastolic dysfunction. Trace mitral regurgitation. Mild tricuspid regurgitation. No comparison studies are available. Kalyan Muro MD (Electronically Signed) Final Date: 28 May 2023 12:03 S
[2023-05-27] MEDS: atorvastatin 40 mg Tablet PO (17:24)
[2023-05-27] MEDS: enoxaparin 40 mg/0.4 mL Syringe SUBCUT (17:24)
[2023-05-27] MEDS: latanoprost 0.005% Op Soln 2.5 mL Btl 1 DROP OPHTHALMIC (17:24)
[2023-05-27] MEDS: brimonidine 0.2% Op Soln 5 mL Btl 1 DROP EYE-BOTH (17:24)
[2023-05-27] MEDS: sodium chlor 0.9% + KCl 20 mEq 20 MEQ/1,000 ML BAG 75 MEQ IV (17:33)
--- NOTE | 2023-05-27 17:36 | ECG_ITS ---
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 Measurements Intervals [place] Rate: 58 P: 40 OK: 184 QRS: -22 QRSD: 84 T: -3 QT: 406 QTc: 399 Interpretive Statements SINUS BRADYCARDIA MODERATE VOLTAGE CRITERIA FOR LVH, CONSIDER NORMAL VARIANT [MEETS CRITERIA IN ONE OF: R(aVL), S(V1), R(V5), R(V5/V6)+S(V1)] POSSIBLE ANTERIOR MYOCARDIAL INFARCTION , PROBABLY OLD [30 ms Q WAVE IN V3/V4, OR R < 0.2 mV IN V4] Compared to ECG 05/27/2023 12:07:04 No significant changes Electronically Signed On 05-27-2023 21:52:01 APPETIZER PACKER by Martha Sorto M.D. [id number]
[2023-05-27 21:05] LABS: Troponin 5 6HR 12.15 ng/L (0-10)
[2023-05-27 21:11] LABS: Troponin 5 6HR Delta -0.85 ng/L (0-12)
[2023-05-27] MEDS: albuterol 2.5 mg/3 mL Neb INHALATION (22:09)
[2023-05-27] MEDS: budesonide 0.5 mg/2 mL Neb INHALATION (22:09)
[2023-05-28] VITALS: BP 160/77; PULSE 56; RESP 17; TEMP 36.5; O2SAT 96
[2023-05-28 04:00] VITALS: BP 151/81; PULSE 58; RESP 17; TEMP 36.6; O2SAT 97
[2023-05-28] MEDS: brimonidine 0.2% Op Soln 5 mL Btl 1 DROP EYE-BOTH ×2 (05:23→09:50)
[2023-05-28] MEDS: latanoprost 0.005% Op Soln 2.5 mL Btl 1 DROP OPHTHALMIC (05:24)
[2023-05-28] MEDS: levothyroxine 75 mcg Tablet PO (05:24)
[2023-05-28] MEDS: sodium chlor 0.9% + KCl 20 mEq 20 MEQ/1,000 ML BAG 75 MEQ IV (05:27)
[2023-05-28 06:06] LABS: Estmated Average Glucose 148; Hemoglobin A1C 6.8 % (4.0-6.0)
[2023-05-28 06:22] LABS: Alanine Aminotransferase 44 U/L (0-33); Albumin Level 3.6 g/dL (3.5-5.2); Alkaline Phosphatase 74 U/L (35-105); Anion Gap 12.9 (5-19); Aspartate Amino Transferase 43 U/L (0-32); Blood Urea Nitrogen 10 mg/dL (8-23); Calcium 9.1 mg/dL (8.5-10.5); Carbon Dioxide 23 mmol/L (22-29); Chloride 108 mmol/L (98-107); Globulin 2.6 g/dL (1.3-4.6); Glucose 109 mg/dL (65-115); Magnesium 2.1 mg/dL (1.7-2.3); Osmolality Calculated 290 mOsm/kg (285-295); Phosphorus 3.4 mg/dL (2.5-4.5); Potassium 3.9 mmol/L (3.5-5.1); Sodium 140 mmol/L (136-145); Thyroid Stimulating Hormone 2.36 uIU/mL (0.27-4.20); Total Bilirubin 0.7 mg/dL (0.15-1.2); Total Protein 6.2 g/dL (6.6-8.7)
[2023-05-28 06:27] LABS: Chol HDL Ratio 2.66 mg/dL (0.0-4.40); Cholesterol 154 mg/dL (0-200); HDL Cholesterol 58 mg/dL (60-100); LDL Cholesterol Calculated 71 mg/dL (50-129); LDL HDL Ratio 1.22 RATIO (0.00-3.22); Triglycerides 126 mg/dL (0-150)
--- NOTE | 2023-05-28 08:00 | NMCV_ITS ---
NM olivier perf SPECT r/s* [id number] Mary Merida Age: 82 Gender: F : 1940 Exam Date: 05/28/2023 08:00 Ordering Phys: Mary Valencia MD Technologist: DHARMESH Tomas Exam Location: [facility] Indications: CHEST PAIN STRESS TEST Please see separate stress test report in [facility] for full findings IMAGE PROTOCOL Rest/Stress 1 Lexiscan Day Radiopharmaceutical Dose (mCi) Administration Site Administered by Rest: Tc-99m 10.3 IV DHARMESH Mcpherson Sestamibi Stress:Tc-99m 32.6 IV DHARMESH Mcpherson Sestamibi Rest: 28-May-2023 60 Discovery 630 Stress: 28-May-2023 30 Discovery 630 0.4mg Lexiscan. Images obtained in supine and prone position. SPECT RESULTS Technical Quality: Excellent Raw Data Analysis: Normal Image Corrections: No attenuation or motion correction applied Summed Stress Score: 3 Summed Rest Score: 4 Summed Difference Score: 1 PERFUSION FINDINGS Small to moderate area of slightly decreased tracer uptake was noted in the mid inferolateral, apical inferior and LV apex. Subtle area of eversibility was noted in the apical inferior region FUNCTIONAL RESULTS (calculated via Gated SPECT) Stress Image LV EF (%): 68 Stress EDV (mL):80 TID: 0.98 Stress ESV (mL):26 FUNCTIONAL FINDINGS: Segmental wall motion analysis revealing no gross wall motion abnormalities IMPRESSIONS 1. Myocardial perfusion imaging revealing small to moderate area of slightly decreased tracer uptake involving the mid inferolateral, apical inferior and LV apex. Subtle area of reversibility was noted in the apical inferior region. 2. LV ejection fraction estimated to be 68%. 3. LV wall motion analysis revealing no gross wall motion abnormalities. 4. Normal LV volume No similar previous studies are available for comparison Dr Martha Sorto MD [facility] (Electronically Signed) Final Date: 28 May 2023 13:31 S
[2023-05-28] MEDS: regadenoson 0.4 Mg/5 ml Syringe IVP (08:31)
[2023-05-28 09:48] VITALS: BP 111/59; PULSE 79
[2023-05-28 09:49] VITALS: BP 179/87; PULSE 63; RESP 18; TEMP 36.5; O2SAT 96
[2023-05-28] MEDS: pantoprazole DR 40 mg Tablet PO (09:49)
[2023-05-28] MEDS: sennosides-docusate Tablet 1 TAB PO (09:49)
[2023-05-28] MEDS: aspirin 81 mg EC Tablet PO (09:49)
[2023-05-28] MEDS: polyethylene glycol 3350 Pkt 17 gm PO (09:49)
[2023-05-28] MEDS: timolol 0.5% Op Soln 5 mL Btl 1 DROP EYE-BOTH (09:51)
[2023-05-28 11:25] VITALS: BP 169/78; PULSE 64; RESP 18; TEMP 36.4; O2SAT 96
--- NOTE | 2023-05-28 12:12 | PM.DCS ---
Discharge Providers Date of Admission: 05/27/23 15:31 Date of Discharge: May 28, 2023 Attending Provider at Admission: Mary Valencia MD Attending Provider at Discharge: Sol Juares MD Primary Care Provider: Vilma Carter DO Diagnoses at Discharge Discharge Diagnosis (1) Chest pain: Status: Acute (2) HTN (hypertension): Status: Chronic (3) Hyperlipidemia: Status: Chronic (4) Borderline diabetes: Status: Acute (5) Peripheral neuropathy: Status: Acute (6) Hypothyroid: Status: Chronic (7) Glaucoma: Status: Acute (8) Chronic constipation: Status: Chronic (9) Asthma: Status: Chronic Reason for Visit Reason for Visit: Cp, stroke symtomps Hospital Course Hospital Course 82-year female who was admitted for management evaluation of chest discomfort, patient was also experiencing discomfort in her neck she has history of cervical spine fusion, remained stable overnight, stress test was done in the morning, she has remained hypertensive throughout her hospitalization 169/70 elevated mercury blood pressure after stress test she has not received her home medication of hydrochlorothiazide, will add lisinopril 20 mg daily, hemoglobin A1c 6.8 she does have diabetic peripheral neuropathy, I do not have a GFR on this visit however she seems to have chronic kidney disease stage II considering previous GFR level, I will have her PCP reevaluate antihyperglycemic agents most likely she will benefit from metformin Patient is full code, lives alone able to attend to her daily needs, daughter checks on her, echo showing preserved ejection fraction grade 1 diastolic function no wall motion abnormality Physical Exam Narrative: Euvolemic Awake and alert GCS 15 S1, S2 Abdomen soft Nonfocal neuroexam Discharge Data Studies Completed and Pending Completed Studies During Hospitalization Category Date Time Status CT cervical spin wo con* [id number] Stat Cat Scan 05/27/23 11:36 Completed Sestamibi Stress Test Request Stat Exams 05/27/23 15:26 Draft XR chest 1V portable [id number] Stat Exams 05/27/23 11:36 Completed CV. echo complete* [id number] Routine Ultrasound 05/27/23 15:28 Completed Pending at discharge Category Date Time Status Sestamibi Stress Test Request Routine Exams 05/27/23 15:29 Ordered Sestamibi Stress Test Request Stat Exams 05/27/23 15:28 Stop Req NM olivier perf SPECT r/s* [id number] Routine Nuc Med 05/28/23 08:00 Taken Radiology Impressions Chest X-Ray 05/27/23 11:36 IMPRESSION: No acute cardiopulmonary abnormality identified. Laboratory Results WBC 6.74 10^3/uL (3.29-11.43) 05/27/23 11:40 RBC 5.11 10^6/uL (3.85-5.65) 05/27/23 11:40 Hgb 15.90 g/dL (11.27-16.99) 05/27/23 11:40 Hct 47.0 % (36-47) 05/27/23 11:40 MCV 92.0 fl (85-98) 05/27/23 11:40 MCH 31.1 pg (27-33) 05/27/23 11:40 MCHC 33.8 g/dL (30-55) 05/27/23 11:40 RDW 12.5 % (12.1-15.1) 05/27/23 11:40 Plt Count 198 10^3/cmm (157-399) 05/27/23 11:40 MPV 10.1 fL (7.4-10.4) 05/27/23 11:40 Neut % (Auto) 53.9 % 05/27/23 11:40 Lymph % (Auto) 31.5 % 05/27/23 11:40 [place] % (Auto) 7.4 % 05/27/23 11:40 Eos % (Auto) 5.6 % 05/27/23 11:40 Baso % (Auto) 1.5 % 05/27/23 11:40 Neut # (Auto) 3.63 10^3/uL (1.8-7.7) 05/27/23 11:40 Lymph # (Auto) 2.1 10^3/uL (0.8-4.8) 05/27/23 11:40 [place] # (Auto) 0.5 10^3/uL (0.2-0.9) 05/27/23 11:40 Eos # (Auto) 0.4 10^3/uL (0.0-0.8) 05/27/23 11:40 Baso # (Auto) 0.1 10^3/uL (0.0-0.1) 05/27/23 11:40 Nucleated RBC % (auto) 0 % 05/27/23 11:40 Nucleated RBCs # 0.0 /100WBC 05/27/23 11:40 D-Dimer 0.48 ug/mLFEU (0-0.59) 05/27/23 11:40 Sodium 140 mmol/L (136-145) 05/28/23 05:41 Potassium 3.9 mmol/L (3.5-5.1) 05/28/23 05:41 Chloride 108 mmol/L (98-107) H 05/28/23 05:41 Carbon Dioxide 23 mmol/L (22-29) 05/28/23 05:41 Anion Gap 12.9 (5-19) 05/28/23 05:41 BUN 10 mg/dL (8-23) 05/28/23 05:41 Creatinine 0.5 mg/dL (0.5-0.9) 05/28/23 05:41 GFR Calculation Not Reportable 05/28/23 05:41 Glucose 109 mg/dL (65-115) 05/28/23 05:41 Estimat Average Glucose 148 05/28/23 05:41 Hemoglobin A1c 6.8 % (4.0-6.0) H 05/28/23 05:41 Calculated Osmolality 290 mOsm/kg (285-295) 05/28/23 05:41 Calcium 9.1 mg/dL (8.5-10.5) 05/28/23 05:41 Phosphorus 3.4 mg/dL (2.5-4.5) 05/28/23 05:41 Magnesium 2.1 mg/dL (1.7-2.3) 05/28/23 05:41 Total Bilirubin 0.7 mg/dL (0.15-1.2) 05/28/23 05:41 AST 43 U/L (0-32) H 05/28/23 05:41 ALT 44 U/L (0-33) H 05/28/23 05:41 Alkaline Phosphatase 74 U/L (35-105) 05/28/23 05:41 Troponin T Baseline 13 ng/L (0-10) H 05/27/23 11:40 Troponin T 120 Minute 12.26 ng/L (0-10) H 05/27/23 13:18 Delta Troponin T -0.74 ABS# (0-10) L 05/27/23 13:18 Troponin T Hi Sens 6Hr 12.15 ng/L (0-10) H 05/27/23 20:29 Troponin T Hi Sens 6Hr Delta -0.85 ng/L (0-12) L 05/27/23 20:29 NT-Pro-B Natriuret Pep 109 pg/mL (0-450) 05/27/23 11:40 Total Protein 6.2 g/dL (6.6-8.7) L 05/28/23 05:41 Albumin 3.6 g/dL (3.5-5.2) 05/28/23 05:41 Globulin 2.6 g/dL (1.3-4.6) 05/28/23 05:41 Triglycerides 126 mg/dL (0-150) 05/28/23 05:41 Cholesterol 154 mg/dL (0-200) 05/28/23 05:41 LDL Cholesterol, Calc 71 mg/dL (50-129) 05/28/23 05:41 HDL Cholesterol 58 mg/dL (60-100) L 05/28/23 05:41 LDL/HDL Ratio 1.22 RATIO (0.00-3.22) 05/28/23 05:41 Cholesterol/HDL Ratio 2.66 mg/dL (0.0-4.40) 05/28/23 05:41 Lipase 25 U/L (13-60) 05/27/23 11:40 TSH 2.36 uIU/mL (0.27-4.20) 05/28/23 05:41 Vitals Last Vital Signs Temp 97.6 F 05/28/23 11:25 Pulse 64 05/28/23 11:25 Resp 18 05/28/23 11:25 BP 169/78 05/28/23 11:25 Pulse Ox 96 05/28/23 11:25 O2 Del Method Room Air 05/28/23 11:25 Discharge Plan Discharge Patient Disposition: Home Condition: Stable Prescriptions: New sennosides-docusate sodium [Stool Softener-Laxative] 8.6-50 mg Tablet 1 tab PO BID Qty: 10 0RF lisinopril 20 mg Tablet 20 mg PO DAILY Qty: 60 3RF metformin 500 mg tablet 500 mg PO BID Qty: 60 0RF Continued budesonide-formoterol [Symbicort] 80-4.5 mcg/actuation HFA aerosol inhaler 2 puff inhalation BID hydrochlorothiazide 50 mg tablet 50 mg PO DAILY levothyroxine 75 mcg capsule 75 mcg PO DAILY aspirin [Adult Aspirin Regimen] 81 mg tablet,delayed release (DR/EC) 81 mg PO DAILY timolol 0.5 % drops 1 drp ophthalmic (eye) BID brimonidine 0.2 % drops 1 drp ophthalmic (eye) Q8H latanoprost 0.005 % Drops 1 drp OPHTHALMIC (EYE) QPM atorvastatin 40 mg tablet 40 mg PO QPM Advair Diskus 250-50 mcg/dose blister with device 1 ea INHALATION BID Fish Oil 1,000 mg (120 mg-180 mg) Capsule 1 cap PO DAILY Referrals: Vilma Carter DO [Primary Care Provider] - Patient Instructions: Opioid Safety Discharge Attestations Time Spent in Discharge Care*: greater than 30 min Quality Metrics Clinical Quality Measures [ No reported AMI, CVA or VTE this stay] Coding Level of Care Code Acute Code for Chg Fwd Diagnoses Chest pain R07.9 HTN (hypertension) I10 Hyperlipidemia E78.5 Borderline diabetes R73.03 Peripheral neuropathy G62.9 Hypothyroid E03.9 Glaucoma H40.9 Chronic constipation K59.09 Asthma J45.909
[2023-05-28 14:29] VITALS: BP 169/78; PULSE 64; RESP 18; TEMP 36.4; O2SAT 96
== END 2023-05-28 14:29 | disposition home or self-care (01) ==
LOC: ER 14:41 → MEDSURG 15:31
PROVIDERS: Admitting Provider Hospitalist; Emergency Provider Emergency Medicine; PCP Family Medicine; Visit Provider Internal Medicine
DX: R07.89 Other chest pain (principal); R00.1 Bradycardia, unspecified; I10 Essential (primary) hypertension; E78.5 Hyperlipidemia, unspecified; R73.03 Prediabetes; G62.9 Polyneuropathy, unspecified; E03.9 Hypothyroidism, unspecified; H40.9 Unspecified glaucoma; K59.09 Other constipation; J45.909 Unspecified asthma, uncomplicated; I07.1 Rheumatic tricuspid insufficiency; M25.473 Effusion, unspecified ankle; Z85.828 Personal history of other malignant neoplasm of skin; Z98.1 Arthrodesis status; Z82.49 Family history of ischemic heart disease and other diseases of the circulatory system
CPT/HCPCS: 36415; 71045; 72125; 78452; 80053; 80061; 83036; 83690; 83735; 83880; 84100; 84443; 84484; 85025; 85378; 93005; 93017; 93306; 94640; 96365; 96366; 96372; 96375; 99285; A9500; G0378; J1650; J2785; J3480; J7613; J7626

== ENCOUNTER → 2023-06-24 11:49 | Outpatient (BNVA) | payer MEDICARE, OTHER, SELFPAY | PROVIDERS: PCP Family Medicine; Visit Provider Nurse Practitioner Family | DX: Z85.828 Personal history of other malignant neoplasm of skin (principal); L57.0 Actinic keratosis; L82.0 Inflamed seborrheic keratosis; L57.8 Other skin changes due to chronic exposure to nonionizing radiation; D22.4 Melanocytic nevi of scalp and neck; L81.4 Other melanin hyperpigmentation | CPT/HCPCS: 17000; 17110; 99213 ==

== ENCOUNTER → 2023-08-13 10:11 | Outpatient (BNVA) | payer MEDICARE, OTHER, SELFPAY | PROVIDERS: PCP Family Medicine; Visit Provider Podiatrist Foot & Ankle Surgery | DX: E11.8 Type 2 diabetes mellitus with unspecified complications (principal); E11.42 Type 2 diabetes mellitus with diabetic polyneuropathy; B35.1 Tinea unguium; M21.611 Bunion of right foot; M21.612 Bunion of left foot; Z79.84 Long term (current) use of oral hypoglycemic drugs | CPT/HCPCS: 99213 ==

== ENCOUNTER → 2023-12-08 09:44 | Outpatient (BNVA) | payer MEDICARE, OTHER, SELFPAY | PROVIDERS: PCP Family Medicine; Visit Provider Nurse Practitioner Family | DX: D48.5 Neoplasm of uncertain behavior of skin (principal); L57.0 Actinic keratosis; Z85.820 Personal history of malignant melanoma of skin; Z85.828 Personal history of other malignant neoplasm of skin; L57.8 Other skin changes due to chronic exposure to nonionizing radiation; D22.4 Melanocytic nevi of scalp and neck; L81.4 Other melanin hyperpigmentation | CPT/HCPCS: 11102; 17000; 99213 ==

== ENCOUNTER → 2023-12-23 09:41 | Outpatient (BNVA) | payer MEDICARE, OTHER, SELFPAY | PROVIDERS: PCP Family Medicine; Visit Provider Dermatology | DX: C44.329 Squamous cell carcinoma of skin of other parts of face (principal); L57.0 Actinic keratosis | CPT/HCPCS: 13132; 17000; 17311 ==

== ENCOUNTER → 2024-04-19 09:14 | Outpatient (BNVA) | payer MEDICARE, OTHER, SELFPAY | PROVIDERS: PCP Family Medicine; Visit Provider Nurse Practitioner Family | DX: L57.8 Other skin changes due to chronic exposure to nonionizing radiation (principal); D22.4 Melanocytic nevi of scalp and neck; L81.4 Other melanin hyperpigmentation; Z85.820 Personal history of malignant melanoma of skin; Z85.828 Personal history of other malignant neoplasm of skin; L57.0 Actinic keratosis | CPT/HCPCS: 17000; 99213 ==

== ENCOUNTER 2024-05-13 08:52 | Outpatient (CLI) | payer MEDICARE, OTHER, SELFPAY ==
--- NOTE | 2024-05-13 09:00 | MM_ITS ---
WS: [id number] BILATERAL SCREENING DIGITAL TOMOSYNTHESIS MAMMOGRAM WITH CAD HISTORY: SCREENING COMPARISON: 04/09/2023, 03/13/2022, 09/29/2020 Bilateral CC and MLO views with tomosynthesis and synthetic mammography submitted. Computer aided det ection analyzed. Breast composition: There are scattered areas of fibroglandular density. No suspicious masses, microc alcifications or architectural distortion. Advanced breast arterial calcifications. MM/MM scr BI tomosynthesis [id number] IMPRESSION: BI-RADS: 2 - Benign. FOLLOW UP: 1 Year Follow-up
== END 2024-05-13 08:53 | disposition home or self-care (01) ==
LOC: MOBLMAM 09:03
PROVIDERS: PCP Family Medicine; Visit Provider Family Medicine
DX: Z12.31 Encounter for screening mammogram for malignant neoplasm of breast (principal); R92.323 Mammographic fibroglandular density, bilateral breasts; R92.1 Mammographic calcification found on diagnostic imaging of breast
CPT/HCPCS: 77063; 77067

== ENCOUNTER → 2024-08-10 09:57 | Outpatient (BNVA) | payer MEDICARE, OTHER, SELFPAY | PROVIDERS: PCP Family Medicine; Visit Provider Podiatrist Foot & Ankle Surgery | DX: E11.8 Type 2 diabetes mellitus with unspecified complications (principal); E11.42 Type 2 diabetes mellitus with diabetic polyneuropathy; B35.1 Tinea unguium; M21.611 Bunion of right foot; M21.612 Bunion of left foot; M72.2 Plantar fascial fibromatosis; Z79.84 Long term (current) use of oral hypoglycemic drugs | CPT/HCPCS: 99213 ==

== ENCOUNTER → 2024-10-18 09:53 | Outpatient (BNVA) | payer MEDICARE, OTHER, SELFPAY | PROVIDERS: PCP Family Medicine; Visit Provider Nurse Practitioner Family | DX: L81.4 Other melanin hyperpigmentation (principal); L57.8 Other skin changes due to chronic exposure to nonionizing radiation; Z85.820 Personal history of malignant melanoma of skin; Z08 Encounter for follow-up examination after completed treatment for malignant neoplasm; Z85.828 Personal history of other malignant neoplasm of skin; D48.5 Neoplasm of uncertain behavior of skin; L57.0 Actinic keratosis | CPT/HCPCS: 11102; 17000; 99213 ==

== ENCOUNTER 2025-01-31 08:59 | Outpatient (CLI) | payer MEDICARE, OTHER, SELFPAY ==
--- NOTE | 2025-01-31 09:07 | USCV_ITS ---
Mary Merida Age: 84 Gender: F : 1940 Exam Date: 01/31/2025 09:15 Ordering Phys: Eunice August MARIA ELENA Technologist: [place] [facility] [place]ication: sob cp BP: 120 / 70 HR: 55 Rhythm: Sinus Technical Quality: Adequate MEASUREMENTS (Male / Female) Normal Values 2D ECHO LV Diastolic Diameter PLAX 4.8 cm 4.2 - 5.9 / 3.9 - 5.3 cm IVS Diastolic Thickness 1.1 cm 0.6 - 1.0 / 0.6 - 0.9 cm IVS Systolic Thickness 1.8 cm LVPW Diastolic Thickness 1.2 cm 0.6 - 1.0 / 0.6 - 0.9 cm LVPW Systolic Thickness 1.3 cm LVOT Diameter 2.0 cm LV Ejection Fraction 2D Teich 69.7 % LV Ejection Fraction MOD 4C 66.7 % LV Ejection Fraction MOD 2C 62.2 % LV Ejection Fraction 2C AL 62.1 % LA Diameter 3.4 cm RA Systolic Volume 4C AL 33.9 ml RA Systolic Volume 4C MOD 30.8 ml Aorta at Sinotubular Diameter 3.1 cm IVC Diameter 1.6 cm M-MODE LA Ao Ratio MM 1.0 AV Cusp Separation MM 2.0 cm DOPPLER AV Peak Velocity 116.0 cm/s LVOT Peak Velocity 73.0 cm/s AV Area Cont Eq vti 1.6 cm squared AV Area Cont Eq pk 2.0 cm squared MV Peak Velocity 108.0 cm/s MV Area PHT 4.4 cm squared Mitral E to A Ratio 1.6 TV Peak Velocity 192.5 cm/s TR Peak Velocity 222.0 cm/s TR Peak Gradient 19.7 mmHg TV Peak E Velocity 86.0 cm/s PV Peak Velocity 82.0 cm/s FINDINGS Left Ventricle Normal LV size ejection fraction of 62%. No gross wall motion normalities. Mild concentric left ventricular hypertrophy Right Ventricle The right ventricle is normal in size and function. Right Atrium The right atrium is normal in size. Left Atrium The left atrium is normal in size. Mitral Valve No gross abnormalities noted Aortic Valve No gross abnormalities noted Tricuspid Valve No gross abnormalities noted.. Trace tricuspid valve regurgitation. Pulmonic Valve No gross abnormalities noted Pericardium Normal pericardium without effusion. Aorta Normal ascending aorta dimension. IVC Normal inferior vena cava. CONCLUSIONS Normal LV size ejection fraction of 62%. No gross wall motion normalities. Mild concentric left ventricular hypertrophy. No gross valvular abnormalities. Normal cardiac chamber sizes. Trace tricuspid valve regurgitation. There is no pericardial effusion. There are no intracardiac masses. Compared to the study from 05/27/2023, there may not be a significant change. Dr Martha Sorto MD [facility] (Electronically Signed) Final Date: 03 February 2025 09:23 S
== END 2025-01-31 09:00 | disposition home or self-care (01) ==
LOC: RAD 09:00
PROVIDERS: PCP Family Medicine
DX: R06.02 Shortness of breath (principal); R07.9 Chest pain, unspecified; I51.7 Cardiomegaly; I36.1 Nonrheumatic tricuspid (valve) insufficiency
CPT/HCPCS: 93306

== ENCOUNTER 2025-04-25 20:01 | Emergency (ER) | payer MEDICARE, OTHER, SELFPAY ==
[2025-04-25 20:11] VITALS: BP 172/88; PULSE 63; RESP 16; TEMP 36.2; O2SAT 99; BMI 26.2
--- NOTE | 2025-04-25 20:20 | ECG_ITS ---
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 Measurements Intervals [place] Rate: 62 P: 67 ID: [id number] QRS: -11 QRSD: 86 T: 16 QT: 397 QTc: 405 Interpretive Statements SINUS RHYTHM Compared to ECG 05/27/2023 18:10:36 Sinus bradycardia no longer present Myocardial infarct finding no longer present Electronically Signed On 04-28-2025 18:15:21 TRANSPORTATION MAINTENANCE OPERATOR by Martha Sorto M.D. [email or web address]
[2025-04-25 20:21] VITALS: BP 172/88; PULSE 63; RESP 16; TEMP 36.2; O2SAT 99
--- NOTE | 2025-04-25 20:34 | CTR_ITS ---
PROCEDURE INFORMATION: Exam: CT Head Without Contrast Exam date and time: 04/25/2025 8:40 PM Age: 84 years old Clinical indication: Syncope and collapse; Additional info: Vertigo TECHNIQUE: Imaging protocol: Computed tomography of the head without contrast. Radiation optimization: All CT scans at this facility use at least one of these dose optimization techniques: automated exposure control; mA and/or kV adjustment per patient size (includes targeted exams where dose is matched to clinical indication); or iterative reconstruction. COMPARISON: CT cervical spin wo con* [id number] 01/18/2024 11:54 RADIATION DOSE METRICS: Total DLP (mGy-cm): 1008.15 FINDINGS: Brain: [id number] patchy periventricular and deep white matter decreased density seen in both cerebral hemispheres. The midline is intact. Punctate left basal ganglia calcifications are noted range of normal.Beam hardening artifact obscures resolution through the posterior fossa structures. No hemorrhage. Unremarkable white matter. No mass effect. Mild atherosclerotic vascular calcifications are seen in the right supraclinoid ICA and vertebrobasilar system. Cerebral ventricles: Ventricles demonstrate normal size shape and configuration and are felt to be in proportion to the degree of widening of the sulci, sylvian fissures and basilar cisterns. Paranasal sinuses: Visualized sinuses are unremarkable. No fluid levels. Mastoid air cells: Visualized mastoid air cells are well aerated. Bones: Unremarkable. No acute fracture. Soft tissues: Punctate scalp calcifications are seen and not felt to be significant. CT/CT head wo con* [id number] IMPRESSION: 1. No acute intracranial head CT findings identified. 2. Atrophy/involutional changes of aging with components of chronic small-vessel disease.
--- NOTE | 2025-04-25 20:34 | XRR_ITS ---
PROCEDURE INFORMATION: Exam: XR Chest Exam date and time: 04/25/2025 8:44 PM Age: 84 years old Clinical indication: Other: Weakness TECHNIQUE: Imaging protocol: Radiologic exam of the chest. Views: 1 view. COMPARISON: CR XR chest 1V portable [id number] 01/18/2024 12:19 FINDINGS: Lungs: When allowing for overlying soft tissues and asymmetry no discrete consolidative infiltrates can be appreciated. However there is trace increased density seen in the left lateral base slightly obscuring the diaphragm. Pleural spaces: Costophrenic angles are fairly well demarcated. No pleural effusion. No pneumothorax. Heart/Mediastinum: Mild aortic tortuosity is noted and unchanged. No cardiomegaly. Bones/joints: Partially visualized at the edge of the field of view is a plate and screws over the mid cervical region. XR/XR chest 1V portable [id number] IMPRESSION: Trace left basilar atelectasis or infiltrate
--- NOTE | 2025-04-25 20:35 | W.ED.DIZZY ---
HPI - Dizziness General: Chief Complaint: Dizziness Stated Complaint: Dizzy Losing Balance\Nose Bleeds Time Seen by Provider: 04/25/25 20:30 History of Present Illness: HPI Narrative: 84-year-old female with history of borderline diabetes, neuropathy, asthma, hypertension, hypothyroidism and hyperlipidemia who presents to the emergency room with dizziness. She says this started at 4 AM. She says its primarily when she stands up. She describes both lightheadedness and some vertigo type symptoms. She says she has trouble balancing and its mainly only when she stands up. She says she feels very lightheaded and initially possibly even near syncopal. No chest pain. No fevers. No abdominal pain. No nausea or vomiting. No dysuria. Related Data Home Medications ?Medication ?Instructions ?Recorded ?Confirmed aspirin 81 mg tablet,delayed 81 mg PO DAILY 10/12/20 08/10/24 release (Adult Aspirin Regimen) budesonide-formoterol HFA 80 2 puff inhalation BID 10/12/20 08/10/24 mcg-4.5 mcg/actuation aerosol inhaler (Symbicort) hydrochlorothiazide 50 mg tablet 50 mg PO DAILY 10/12/20 08/10/24 levothyroxine 75 mcg capsule 75 mcg PO DAILY 10/12/20 08/10/24 brimonidine 0.2 % eye drops 1 drp ophthalmic (eye) Q8H 03/12/22 08/10/24 timolol 0.5 % eye drops 1 drp ophthalmic (eye) BID 03/12/22 08/10/24 atorvastatin 40 mg tablet 40 mg PO QPM 05/27/23 08/10/24 fluticasone 250 mcg-salmeterol 50 1 ea inhalation BID 05/27/23 08/10/24 mcg/dose blistr powdr for inhalation (Advair Diskus) latanoprost 0.005 % eye drops 1 drp ophthalmic (eye) QPM 05/27/23 08/10/24 omega 1-onv-msw-fish oil 1,000 mg 1 cap PO DAILY 05/27/23 08/10/24 (120 mg-180 mg) capsule (Fish Oil) Previous Rx's ?Medication ?Instructions ?Recorded lisinopril 20 mg tablet 20 mg PO DAILY #60 tabs 05/28/23 metformin 500 mg tablet 500 mg PO BID #60 tabs 05/28/23 sennosides 8.6 mg-docusate sodium 1 tab PO BID #10 tabs 05/28/23 50 mg tablet (Stool Softener-Laxative) cefdinir 300 mg capsule 300 mg PO BID 7 days #14 caps 04/25/25 Allergies Allergy/AdvReac Type Severity Reaction Status Date / Time gabapentin (From Neurontin) Allergy not Verified 08/10/24 10:01 function morphine Allergy rooms spin Verified 08/10/24 10:01 Sulfa (Sulfonamide Allergy rash Verified 08/10/24 10:01 Antibiotics) Review of Systems Narrative: Constitutional symptoms: Negative except as documented in HPI. Skin symptoms: Negative except as documented in HPI. Eye symptoms: Negative except as documented in HPI. ENMT symptoms: Negative except as documented in HPI. Respiratory symptoms: Negative except as documented in HPI. Cardiovascular symptoms: Negative except as documented in HPI. Gastrointestinal symptoms: Negative except as documented in HPI. Genitourinary symptoms: Negative except as documented in HPI. Musculoskeletal symptoms: Negative except as documented in HPI. Neurologic symptoms: Negative except as documented in HPI. Psychiatric symptoms: Negative except as documented in HPI. Endocrine symptoms: Negative except as documented in HPI. PFSH ED PFSH: Medical History (Updated 04/25/25 @ 22:32 by Kitty Villa MD) Chest pain Chronic constipation Peripheral neuropathy Glaucoma Borderline diabetes 2 para 2 History of nonmelanoma skin cancer History of malignant melanoma Asthma HTN (hypertension) Hypothyroid Hyperlipidemia Surgical History History of neck surgery H/O: hysterectomy Family History Sister History of open heart surgery Quadruple bypass by Dr. Helton in 2016 CAD (coronary artery disease) Other Heart disease Social History Smoking and tobacco/nicotine status: never used tobacco/nicotine Alcohol intake: never Substance/Drug Use: never Additional social history: daughter lives in [place], uses a cane to ambulate Household members: none Physical Exam Narrative: EXAM NARRATIVE: General: Alert, no acute distress. Skin: Warm, dry. Head: Normocephalic, atraumatic. Neck: Supple, trachea midline. Eye: Extraocular movements are intact. Ears, nose, mouth and throat: mucosa moist. Cardiovascular: Regular, Normal peripheral perfusion. Respiratory: Lungs are clear to auscultation, respirations are non-labored, breath sounds are equal, Symmetrical chest wall expansion. Gastrointestinal: Soft, Nontender, Non distended Musculoskeletal: Normal ROM, no deformity. Neurological: Alert and oriented, No focal neurological deficit observed. Psychiatric: Cooperative, appropriate mood & affect. Course Vital Signs: Vital signs: Vital Signs Temperature 97.2 F L 04/25/25 20:21 Pulse Rate 52 L 04/25/25 22:02 Respiratory Rate 16 04/25/25 20:21 Blood Pressure 150/66 04/25/25 22:02 Pulse Oximetry 96 04/25/25 22:02 Oxygen Delivery Me thod Room Air 04/25/25 22:02 MDM - Dizziness Medical Decision Making General: Alert, no acute distress. Skin: Warm, dry. Head: Normocephalic, atraumatic. Neck: Supple, trachea midline. Eye: Extraocular movements are intact. Ears, nose, mouth and throat: mucosa moist. Cardiovascular: Regular, Normal peripheral perfusion. Respiratory: Lungs are clear to auscultation, respirations are non-labored, breath sounds are equal, Symmetrical chest wall expansion. Gastrointestinal: Soft, Nontender, Non distended Musculoskeletal: Normal ROM, no deformity. Neurological: Alert and oriented, No focal neurological deficit observed. Psychiatric: Cooperative, appropriate mood & affect. Medical Records Medical decision making Patient's reason for coming to the emergency room: Dizziness Social determinants: Patient is retired. She is accompanied by her daughter. I reviewed the patient's medical record. 84-year-old female with history of borderline diabetes, neuropathy, asthma, hypertension, hypothyroidism and hyperlipidemia I reviewed the patient's current home meds Prescription monitoring shows no narcotic medications or prescriptions Alternate historians: None Differential diagnosis including but not limited to and based on the above HPI, review of systems and physical exam: for patient with complaint of dizziness: stroke, hypotension, hypertension, infection, vertigo, orthostasis Orders placed to evaluate differential diagnosis based on the above differential, HPI and physical exam Chest x-ray: No acute process. No infiltrate. No pneumothorax. This was reviewed and interpreted by myself the emergency room physician. I also reviewed the radiology report. CT head: No acute intracranial process. No intracranial hemorrhage, no evidence of infarct. No evidence of acute fracture. This was reviewed and interpreted by myself the emergency room physician. I also reviewed the radiology report. EKG: Time 2019. Rate 62. Normal sinus rhythm, No ST-T changes, no ectopy, normal GA & QRS intervals, This was reviewed and interpreted by myself the ER physician at 2024 Lab Review: Laboratory results were reviewed and interpreted by myself the emergency room physician. No leukocytosis. No anemia. No renal failure. Liver enzymes are normal. Flu COVID and RSV are negative. Urinalysis does show signs of infection with 21-50 whites and 2+ leukocyte esterase with 2+ bacteria. Assessment of risk: Level of risk: Moderate risk patient. Several comorbidities and elderly. Hospitalization considerations: No indication for hospitalization. Her vitals have been good. No leukocytosis. No signs of sepsis. Reexamination: Patient remained stable. No increased work of breathing. No altered mental status. No focal motor deficits. Assessment and plan: Urinary tract infection Dehydration Dizziness ? IV fluids and IV Rocephin in the emergency room - Discharged home - Discussed plan with patient. Answered any questions. - Evaluation and treatment of this problem were appropriate in the emergency setting. Lab Data 04/25/25 21:04/25/25: Radiology Impressions Chest X-Ray 04/25/25:34 IMPRESSION: Trace left basilar atelectasis or infiltrate Head CT 04/25/25 20:34 IMPRESSION: 1. No acute intracranial head CT findings identified. 2. Atrophy/involutional changes of aging with components of chronic small-vessel disease. Laboratory Results WBC 6.54 10^3/uL (3.29-11.43) 04/25/25 21: RBC 4.40 10^6/uL (3.85-5.65) 04/25/25 21: Hgb 13.40 g/dL (11.27-16.99) 04/25/25: Hct 40.2 % (36-47) 04/25/25 21: MCV 91.4 fl (85-98) 04/25/25 21: MCH 30.5 pg (27-33) 04/25/25: MCHC 33.3 g/dL (30-55) 04/25/25 21:02 RDW 13.2 % (12.1-15.1) 04/25/25 21:02 Plt Count 166 10^3/cmm (157-399) 04/25/25 21:02 MPV 10.4 fL (7.4-10.4) 04/25/25 21:02 Neut % (Auto) 51.1 % 04/25/25 21:02 Lymph % (Auto) 33.6 % 04/25/25 21:02 [place] % (Auto) 9.0 % 04/25/25 21:02 Eos % (Auto) 5.0 % 04/25/25 21:02 Baso % (Auto) 1.1 % 04/25/25 21:02 Neut # (Auto) 3.34 10^3/uL (1.8-7.7) 04/25/25 21:02 Lymph # (Auto) 2.2 10^3/uL (0.8-4.8) 04/25/25 21:02 [place] # (Auto) 0.6 10^3/uL (0.2-0.9) 04/25/25 21:02 Eos # (Auto) 0.3 10^3/uL (0.0-0.8) 04/25/25 21:02 Baso # (Auto) 0.1 10^3/uL (0.0-0.1) 04/25/25 21:02 Nucleated RBC % (auto) 0 % 04/25/25 21:02 Nucleated RBCs # 0.0 /100WBC 04/25/25 21:02 Sodium 138 mmol/L (136-145) 04/25/25 21:02 Potassium 3.5 mmol/L (3.5-5.1) 04/25/25 21:02 Chloride 102 mmol/L (98-107) 04/25/25 21:02 Carbon Dioxide 23 mmol/L (22-29) 04/25/25 21:02 Anion Gap 16.5 (5-19) 04/25/25 21:02 BUN 9 mg/dL (8-23) 04/25/25 21:02 Creatinine 0.6 mg/dL (0.5-0.9) 04/25/25 21:02 GFR Calculation Not Reportable 04/25/25 21:02 Glucose 186 mg/dL (65-115) H 04/25/25 21:02 Calculated Osmolality 290 mOsm/kg (285-295) 04/25/25 21:02 Lactic Acid 1.9 mmol/L (0.5-2.2) 04/25/25 21:02 Calcium 8.9 mg/dL (8.5-10.5) 04/25/25 21:02 Total Bilirubin 0.5 mg/dL (0.15-1.2) 04/25/25 21:02 AST 30 U/L (0-32) 04/25/25 21:02 ALT 31 U/L (0-33) 04/25/25 21:02 Alkaline Phosphatase 66 U/L (35-105) 04/25/25 21:02 Total Protein 6.7 g/dL (6.6-8.7) 04/25/25 21:02 Albumin 3.8 g/dL (3.5-5.2) 04/25/25 21:02 Globulin 2.9 g/dL (1.3-4.6) 04/25/25 21:02 Urine Color Yellow (Yellow) 04/25/25 21:46 Urine Appearance Cloudy (CLEAR) A 04/25/25 21:46 Urine pH 7.5 (5-7) 04/25/25 21:46 Ur Specific [place] 1.008 (1.005-1.030) 04/25/25 21:46 Urine Protein Negative (Negative) 04/25/25 21:46 Urine Glucose (UA) Negative (Normal) 04/25/25 21:46 Urine Ketones Negative (Negative) 04/25/25 21:46 Urine Blood Non-haemolysed trace (Negative) 04/25/25 21:46 Urine Nitrate Negative (Negative) 04/25/25 21:46 Urine Bilirubin Negative (Negative) 04/25/25 21:46 Urine Urobilinogen 0.2 mg/dL (Negative) 04/25/25 21:46 Ur Leukocyte Esterase 2+ (Negative) A 04/25/25 21:46 Urine RBC 0-2 /hpf (0-2) 04/25/25 21:46 Urine WBC 21-50 /hpf (0-5) H 04/25/25 21:46 Ur Squamous Epith Cells 51-100 /hpf (0-5) 04/25/25 21:46 Amorphous Sediment Not Reportable 04/25/25 21:46 Urine Bacteria 2+ /hpf (NONE) H 04/25/25 21:46 Hyaline Casts 0.40 /lpf 04/25/25 21:46 Influenza A (PCR) Negative (Negative) 04/25/25 21:00 Influenza Type B (PCR) Negative (Negative) 04/25/25 21:00 RSV (PCR) Negative (Negative) 04/25/25 21:00 SARS-CoV-2 (PCR) Negative (Negative) 04/25/25 21:00 All radiology interpretation(s) finalized by discharge Discharge Plan Discharge Patient Disposition: Home Clinical Impression: Acute UTI, Dehydration, Dizziness Condition: Stable Prescriptions: New cefdinir 300 mg capsule 300 mg PO BID 7 Days Qty: 14 0RF No Action budesonide-formoterol [Symbicort] 80-4.5 mcg/actuation HFA aerosol inhaler 2 puff inhalation BID hydrochlorothiazide 50 mg tablet 50 mg PO DAILY levothyroxine 75 mcg capsule 75 mcg PO DAILY aspirin [Adult Aspirin Regimen] 81 mg tablet,delayed release (DR/EC) 81 mg PO DAILY timolol 0.5 % drops 1 drp ophthalmic (eye) BID brimonidine 0.2 % drops 1 drp ophthalmic (eye) Q8H latanoprost 0.005 % Drops 1 drp OPHTHALMIC (EYE) QPM atorvastatin 40 mg tablet 40 mg PO QPM Advair Diskus 250-50 mcg/dose blister with device 1 ea INHALATION BID Fish Oil 1,000 mg (120 mg-180 mg) Capsule 1 cap PO DAILY lisinopril 20 mg Tablet 20 mg PO DAILY Qty: 60 3RF Stool Softener-Laxative 8.6-50 mg Tablet 1 tab PO BID Qty: 10 0RF metformin 500 mg tablet 500 mg PO BID Qty: 60 0RF Discharge Orders: Discharge ED (Routine); Ordered 04/25/25 Ordered By: Kitty Villa Referrals: Vilma Carter DO [Primary Care Provider, Family Practice] Discharge Diet: Usual diet Discharge Activity: Increase activity as tolerated Patient Instructions: Urinary Tract Infection in Older Adults (ED), Opioid Safety, Pain Management, Patient Portal & Jodi Instructions Activity Restrictions/Additional Instructions: Thank you for choosing [facility] for your healthcare needs today. You have been screened and evaluated and felt safe for discharge. Health conditions do change or evolve sometimes and as such it is important that you follow up with your Primary Doctor to be re checked, 3-5 days is a general good time frame for follow up. You are always welcome to return to the ED for re assessment if your symptoms are worsening or you have new concerns Print Language: German Coding Level of Care Code ED Special Loan Officer for Zonia Sepulveda
[2025-04-25 21:02] VITALS: BP 132/76; PULSE 56; O2SAT 98
[2025-04-25 21:16] LABS: Hematocrit 40.2 % (36-47); Hemoglobin 13.40 g/dL (11.27-16.99); Mean Corpuscular HGB Conc 33.3 g/dL (30-55); Mean Corpuscular Hemoglobin 30.5 pg (27-33); Mean Corpuscular Volume 91.4 fl (85-98); Nucleated Red Blood Cells % 0 %; Platelet Count 166 10^3/cmm (157-399); Red Blood Count 4.40 10^6/uL (3.85-5.65); White Blood Count 6.54 10^3/uL (3.29-11.43)
[2025-04-25 21:38] LABS: Alanine Aminotransferase 31 U/L (0-33); Albumin Level 3.8 g/dL (3.5-5.2); Alkaline Phosphatase 66 U/L (35-105); Anion Gap 16.5 (5-19); Aspartate Amino Transferase 30 U/L (0-32); Blood Urea Nitrogen 9 mg/dL (8-23); Calcium 8.9 mg/dL (8.5-10.5); Carbon Dioxide 23 mmol/L (22-29); Chloride 102 mmol/L (98-107); Globulin 2.9 g/dL (1.3-4.6); Glucose 186 mg/dL (65-115); Osmolality Calculated 290 mOsm/kg (285-295); Potassium 3.5 mmol/L (3.5-5.1); Sodium 138 mmol/L (136-145); Total Protein 6.7 g/dL (6.6-8.7)
[2025-04-25 21:39] LABS: Lactic Sepsis W/Reflex 1.9 mmol/L (0.5-2.2)
--- OUTSIDE RECORDS SUMMARY | 2025-04-25 21:43 | XMS_ITS | Encounter Summary ---
Author Organization [facility] Address [address] [place] [address] Care Team Providers Care Refueling Ramp Supervisor Name Role Phone Vilma Carter DO Primary Care Provider Encounter Details Date Type Department Care Team (Latest Contact Info) Description 10/21/2001 Outpatient Historical [facility] [address], [address] [place] [address] [place] [address] [place] [address] Idio prog polyneuropathy (Primary Dx); Skin sensation disturb; Pain in limb Social History Tobacco Use Types Packs/Day Years Used Date Smoking Tobacco: Never Assessed Comments Unknown Sex and Gender Information Value Date Recorded Sex Assigned at Not on file Legal 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
--- OUTSIDE RECORDS SUMMARY | 2025-04-25 21:43 | XMS_ITS | Clinical Summary ---
Author Organization [facility] Address [address] [place] [address] Care Team Providers Care Inspector Toys Name Role Phone Vilma [place] Lala ZELAYA Primary Care Provider Allergies Active Allergy Reactions Criticality Noted Date Comments Gabapentin Confusion,Dizziness, Wea kness High 03/27/2009 Morphine Anaphylaxis,Shortnes s of Breath/Wheezing,Other (See Comments) High 03/27/2009 Arms go numb Sulfamethoxazole-Trimeth oprim Rash,Fever Low 03/27/2009 Tramadol Nausea and Vomiting Medium 03/27/2009 Medications TRAVATAN Z 0.004 % solution 07/20/19 17 Active polyethylene glycol 3350 (MIRALAX) 17 gram/dose PowderIndications: Chronic constipation DISOLVE 1 SCOOP IN 8 OZ OF FLUID AND DRINK ENTIRELY EVERY DAY.. 527 Gram 11 06/12/19 Active Blood-Glucose Meter Test once daily. E11.9. 1 Each 06/30/19 19 Active lancets Test sugar once daily. E11.9. 100 Each 2 06/30/19 19 Active HYDROcodone-acetam inophen (NORCO) 7.5-325 mg TabletIndications: Carpal tunnel syndrome, bilateral Take 1 Tablet by mouth every 4 hours as needed for Pain, Moderate. Max Daily Amount: 6 Tablets 40 Tablet 09/03/19 Active omega-3 fatty acids-fish oil 300-1,000 mg Capsule Take by mouth daily. Active aspirin (JEANA CHEWABLE) 81 mg Tablet, ChewableIndication s:Essential hypertension Take 1 Tablet (81 mg) by mouth daily. 192 Tablet 05/06/20 19 Active latanoprost (XALATAN) 0.005 % solution Administer 1 Drop in both eyes daily at bedtime. 01/26/20 Active Combigan 0.2-0.5 % solution Administer 1 Drop in both eyes every 12 hours. 01/26/20 20 Active blood sugar diagnostic ([employer] Verio test strips) Strip USE 1 STRIP TO CHECK GLUCOSE ONCE DAILY 100 Each 02/16/20 20 Active Symbicort 160-4.5 mcg/actuation HFA Aerosol InhalerIndications :Mild intermittent asthma without complication Inhale 2 puffs by mouth twice daily 11 Gram 05/14/20 20 Active simvastatin (ZOCOR) 40 mg tabletIndications: Mixed hyperlipidemia TAKE 1 TABLET DAILY WITH SUPPER 90 Tablet 3 05/21/19 21 Active LEVOTHYROXINE 75 mcg tablet TAKE 1 TABLET DAILY BULKER 90 Tablet 3 06/25/19 21 Active OTHER daily. TRI-EST(80/10/ 0)PROGEST 4/100MG Capsules 30 Capsule 5 09/29/19 21 Active HYDROCHLOROTHIAZID E 25 mg tablet TAKE 2 TABLETS DAILY 180 Tablet 1 10/25/19 21 Active Additional Information Patient taking differently: 25 mg Oral DAILY, Reported on 11/08/2020 albuterol HFA 90 mcg inhalerIndications :Mild intermittent asthma without complication INHALE 2 PUFFS BY MOUTH EVERY 6 HOURS NEEDED FOR SHORTNESS OF BREATH 25.5 Gram 11/09/19 21 Active Active Problems Problem Noted Date Diagnosed Date Mild intermittent asthma without complication Constipation 08/07/2016 Elevated liver enzymes 08/07/2016 Intractable migraine without aura and without status migrainosus 07/05/2016 COCO on CPAP 07/05/2016 Severe obesity (BMI 35.0-39.9) with comorbidity 05/17/2016 Type 2 diabetes mellitus wit hout complication, without long-term current use of insulin 05/17/2016 Essential hypertension 02/25/2014 Acquired hypothyroidism 08/16/2009 Primary insomnia 08/16/2009 Migraine without aura and wi thout status migrainosus, not intractable 08/16/2009 Mixed hyperlipidemia 08/16/2009 Fibromyalgia 08/16/2009 Primary osteoarthritis involving multiple joints 08/16/2009 Immunizations Immunization Administration Dates Next Due (ADACEL/BOOSTRIX)(10 YR UP) TDAP VACCINE, 0.5ML, IM 09/09/2014 (PNEUMOVAX 23)(50 YRS UP) PN EUMOCOCCAL POLYSACCHARIDE (PPV23) 0.5 ML, IM 02/10/2019,02/25/2014 (PREVNAR 13)(6 WKS UP) PNEUM OCOCCAL CONJUGATE (PCV13) 0.5 ML, IM 01/23/2018 Influenza Seasonal Unspecifi ed Formulation IM 02/03/2015 Influenza Vaccine High Dose 65+ Yrs IM 0 01/31/2020,02/10/2019,01/23/2018,02/21,01/26/2016,02/03/2015 Influenza Vaccine Split 3+ Yrs IM 04/17/2011 Influenza Vaccine Split 3+ Yrs PF IM 01/28/2014 PNEUMOVAX (PPSV23) pneumococ caleb polysaccharide 23-valent Vaccine 02/10/2019 PREVNAR (PCV13) pneumococcal 13-valent conjugate Vaccine 01/23/2018 Pneumococcal 13-leonidas Conj Vac c Patient Supplied 01/23/2018 Zoster Vaccine Live SQ 09/23/2014 Family History Medical History Relation Name Comments Cancer Brother 1 PROSTRATE CANCE R Other Brother 4 BORN W/O CEREBE LLUM/ MUSCULAR PROBLEMS Diabetes Father Heart Disease Father Heart Disease Mother Cancer Sister 1 CERVICAL Heart Disease Sister 1 Cancer Sister 2 CERVICAL Breast Cancer Sister 5 SOFIA Diabetes Son Ovarian Cancer Neg Hx Relation Name Status Comments Brother 1 Alive Brother 2 Alive Brother 3 Alive Brother 4 Daughter Alive Father Maternal Grandmother Mother Sister 1 Sister 2 Alive Sister 3 Alive Sister 4 Alive Sister 5 SOFIA Alive Son Alive Social History Tobacco Use Types Packs/Day Years Used Date Smoking Tobacco: Never Smokeless Tobacco: Never Tobacco Cessation:Counseling Given: Yes Alcohol Use Standard Drinks/Week Comments No 0 (1 standard drink = 0.6 oz pur e alcohol) Comments No Sex and Gender Information Value Date Recorded Sex Assigned at Not on file Legal Sex Female 5:16 AM MANUFACTURING AUTOMATION ENGINEER Gender Identity Not on file Sexual Orientation Not on file Occupation Industry Job Start Date Job End Date Not on file Not on file Not on file Not on file Last Filed Vital Signs Vital Sign Reading Time Taken Comments Blood Pressure 128/72 11/08/2020 1:48 PM CDT Pulse 72 11/08/2020 1:48 PM CDT Temperature 37 C (98.6 F) 11/08/2020 1:48 PM CDT Respiratory Rate 18 07/18/2020 11:11 AM MANUFACTURING AUTOMATION ENGINEER Oxygen Saturation 97% 11/08/2020 1:48 PM CDT Inhaled Oxygen Concentration - - Weight 68 kg (150 lb) 11/08/2020 1:48 PM CDT Height 162.6 cm (5' 4 ) 11/08/2020 1:48 PM CDT Body Mass Index 25.75 11/08/2020 1:48 PM CDT Plan of Treatment Health Maintenance Due Date Last Done Comments ZOSTER VACCINE (2 of 3) 11/18/2014 09/23/2014 RSV VACCINE (60+ or ) (1 - 1-dose 75+ series) 2016 OSTEOPOROSIS SCREENING 03/08/2019 03/08/2014 DIABETES MICROALBUMIN ANNUAL SCREEN 05/20/2020 05/20/2019, 05/15/2018 DIABETES HBA1C Q 6 MONTHS 01/18/20212020, 11/22/2019, 05/24/2019, Additional history exists Traditional Medicare (ACO) A nnual Wellness Visit 01/31/2021 01/31/2020, 09/08/2017, 05/08/2015, Additional history exists DIABETES ANNUAL FOOT EXAM 07/18/2021 07/18/2020, 06/2020 LDL CHOLESTEROL ANNUAL 07/18/2021 1, 05/24/2019, 09/04/2017, Additional history exists DIABETES ANNUAL RETINAL EXAM 06/27/202201/2022, 01/31/2020, 01/26/2020, Additional history exists DTAP/TDAP/TD VACCINES (2 - T d or Tdap) 09/09/2024 09/09/2014 INFLUENZA VACCINE (#1) 2024 0, 02/10/2019, 01/23/2018, Additional history exists COLORECTAL SCREENING Discontinued 05/03/2011 Colorectal Cancer Screening Discontinued PNEUMOCOCCAL VACCINE 50+ YEARS Completed 0 02/10/2019, 02/10/2019, 01/23/2018, Additional history exists FIT-DNA Q 3 years Discontinued FIT/FOBT Q 1 year Discontinued Flex Sig/CT Colonography Q 5 years Discontinued Procedures Procedure Name Priority Date/Time Associated Diagnosis Comments LIPID PANEL Routine 07/18/2020 11:27 AM MANUFACTURING AUTOMATION ENGINEER Type 2 diabetes mellitus without complication, without long-term current use of insulin ([facility]) HEMOGLOBIN A1C Routine 07/18/2020 11:27 AM MANUFACTURING AUTOMATION ENGINEER Type 2 diabetes mellitus without complication, without long-term current use of insulin ([facility]) HM DIABETES FOOT EXAM Routine 07/18/2020 MICROALBUMIN/CREATIN INE RATIO, RANDOM UR Routine 05/20/2019 9:55 AM MANUFACTURING AUTOMATION ENGINEER Type 2 diabetes mellitus without complication, without long-term current use of insulin ([facility]) XR DEXA BONE DENSITY AXIAL 1 OR MORE SITES Routine 03/08/2014 12:39 PM CDT Encounter for imaging to assess osteopenia from Last 3 Months or Most Recently Relevant to Health Maintenance Results * (ABNORMAL) HEMOGLOBIN A1C (07/18/2020 11:27 AM MANUFACTURING AUTOMATION ENGINEER) HEMOGLOBIN A1C 6.4(H) See Comment % 07/19/2020 9:51 AM MANUFACTURING AUTOMATION ENGINEER [facility] EST. AVG GLUCOSE, A1C 137 mg/dL 07/19/2020 9:51 AM [facility] Blood Venipuncture / Unknown 07/18/2020 11:27 AM MANUFACTURING AUTOMATION ENGINEER 07/18/2020 10:53 PM MANUFACTURING AUTOMATION ENGINEER Narrative [facility] - 07/19/2020 9:51 AM MANUFACTURING AUTOMATION ENGINEER HGB A1C INTERPRETATION NORMAL: <5.7% PRE-DIABETES: 5.7 - 6.4% DIABETES: 6.5% OR GREATER Falsely low A1C measurements can occur when: 1. Anemia and/or hemolytic anemia is present. 2. Hemoglobin variants present. 3. Renal failure. 4. Transfusion of blood product in the last 120 days. We recommend ordering a fructosamine test([id number]) to more accurately assess glycemic status if any of the above conditions are present. us Vilma [place] DO CHEMISTRY ORDERABLES Final Result [facility] CLIA# [id number] [address] [place] [address] * (ABNORMAL) LIPID PANEL (07/18/2020 11:27 AM MANUFACTURING AUTOMATION ENGINEER) CHOLESTEROL 151 <200 mg/dL 07/19/2020 9:39 AM MANUFACTURING AUTOMATION ENGINEER [facility] TRIGLYCERIDE 63 <150 mg/dL 07/19/2020 9:39 AM MANUFACTURING AUTOMATION ENGINEER [facility] HDL 65(H) 40 - 59 mg/dL 07/19/2020 9:39 AM MANUFACTURING AUTOMATION ENGINEER [facility] LDL CALCULATED 73 <100 mg/dL 07/19/2020 9:39 AM MANUFACTURING AUTOMATION ENGINEER [facility] NON-HDL CHOLESTEROL 86 <130 mg/dL 07/19/2020 9:39 AM [facility] Blood Venipuncture / Unknown 07/18/2020 11:27 AM MANUFACTURING AUTOMATION ENGINEER 07/18/2020 10:53 PM MANUFACTURING AUTOMATION ENGINEER Narrative [facility] - 07/19/2020 9:39 AM MANUFACTURING AUTOMATION ENGINEER TOTAL CHOLESTEROL mg/dL Desirable <200 Borderline high 200-239 High >=240 TRIGLYCERIDES mg/dL Normal <150 Borderline high 150-199 High 200-499 Very high >=500 HDL CHOLESTEROL mg/dL Low <40 Normal 40-59 Desirable >=60 NON HDL CHOLESTEROL mg/dL Optimal <130 Near Optimal 130-159 Borderline High 160-189 Very High >=190 CALCULATED LDL mg/dL LDL <70, OPTIMAL if have Atherosclerotic cardiovascular disease (ASCVD) or intermediate or higher (>7.5%) 10 year risk of ASCVD including most adults with diabetes. LDL <100, Optimal in adult patients with low (<7.5%) 10 year ASCVD risk LDL 100-160, Suboptimal LDL >160, High LDL >190, Very high ATPIII Guidelines Reference Ranges for Lipid Panels (NCEP/AMA) . us Vilma [place] DO CHEMISTRY ORDERABLES Final Result [facility] CLIA# [id number] [address] [place] [address] * HM DIABETES FOOT EXAM (07/18/2020) Vilma [place] DO HEALTH MAINTENANCE Edited R esult - Final * MICROALBUMIN/CREATININE RATIO, RANDOM UR (05/20/2019 9:55 AM MANUFACTURING AUTOMATION ENGINEER) MICROALBUMIN, URINE <1.2 No Reference Range mg/dL 05/20/2019 9:37 PM MANUFACTURING AUTOMATION ENGINEER [facility] CREATININE, URINE 57.8 29.0 - 226.0 mg/dL 05/20/2019 9:37 PM MANUFACTURING AUTOMATION ENGINEER [facility] Comment:Reference Range vari es with fluid intake and diet. MICROALBUMIN/C REAT RATIO, UR <20.8 <25.0 mg/g 05/20/2019 9:37 PM MANUFACTURING AUTOMATION ENGINEER [facility] Urine URINE SPECIMEN OBTAINED BY CLEAN CATCH PROCEDURE / Unknown Collection / Unknown 05/20/2019 9:55 AM MANUFACTURING AUTOMATION ENGINEER 05/20/2019 7:49 PM MANUFACTURING AUTOMATION ENGINEER Narrative [facility] - 05/20/2019 9:37 PM MANUFACTURING AUTOMATION ENGINEER Condition Microalbumin/Creat ratio Normal Males <17 Normal Females <25 Microalbuminuria Males 17-299 Microalbuminuria Females 25-299 Overt proteinuria >=300 Tatiana Sales GAME BIRD FARMER URINE ORDERABLES Final Result [facility] CLIA# [id number] [facility] [place] [address] * XR DEXA BONE DENSITY AXIAL 1 OR MORE SITES (03/08/2014 12:39 PM CDT) Anatomical Region Laterality Modality Digital Radiogra phy 03/08/2014 12:2 7 PM CDT Narrative 03/08/2014 1:07 PM CDT PROCEDURE DEXA BONE DENSITY, 08 March 2014 Bone mineral densitometry was assessed by DEXA of the lumbar spine and left hip. There are no previous studies for comparison. Total density measured in the lumbar spine is 1.329 g/sq cm for a T score of +2.6. The total bone density of the left hip measures 1.222 g/sq cm for a T score of +2.3. The femoral neck region measures 0.924 g/sq cm for a T score of +0.7. IMPRESSION normal bone mineral density Procedure Note Ernesto Costello MD - 03/08/2014 PROCEDURE DEXA BONE DENSITY, 08 March 2014 Bone mineral densitometry was assessed by DEXA of the lumbar spine and left hip. There are no previous studies for comparison. Total density measured in the lumbar spine is 1.329 g/sq cm for a T score of +2.6. The total bone density of the left hip measures 1.222 g/sq cm for a T score of +2.3. The femoral neck region measures 0.924 g/sq cm for a T score of +0.7. IMPRESSION normal bone mineral density Tatiana Sales [facility] DIAGNOSTIC IMAGING ORDERABLES Final Result from Last 3 Months or Most Recently Relevant to Health Maintenance Insurance MEDICARE PART A AND B [facility] Care Teams Inspector Toys Relationship Specialty Start Date End Date Vilma [place] DO [address] [place] [phone] PCP - General 03/27/09
--- OUTSIDE RECORDS SUMMARY | 2025-04-25 21:43 | XMS_ITS | Encounter Summary ---
Author Organization [facility] Address [address] [place] [address] Care Team Providers Care Stone And Concrete Washer Name Role Phone Vilma [place] DO Primary Care Provider Encounter Details Date Type Department Care Team (Latest Contact Info) Description 03/28/2004 Outpatient Historical [facility] Gen Spec Surg [address] [place] [address] Yonis Landers MD NO ADDRESS ON FILE Benign mariposa skin arm (Primary Dx) Social History Tobacco Use Types Packs/Day Years Used Date Smoking Tobacco: Never Assessed Comments Unknown Sex and Gender Information Value Date Recorded Sex Assigned at Not on file Legal Sex Female 5:16 AM AUTOMOTIVE POWER ELECTRONICS ENGINEER Gender Identity Not on file Sexual Orientation Not on file documented as of this encounter Plan of Treatment Not on file documented as of this encounter Visit Diagnoses Diagnosis Benign mariposa skin arm- Primary Benign neoplasm of skin of upper limb, including shoulder documented in this encounter Care Teams Stone And Concrete Washer Relationship Specialty Start Date End Date Vilma [place] DO [address] [place] [phone] PCP - General 03/27/09 documented as of this encounter
--- OUTSIDE RECORDS SUMMARY | 2025-04-25 21:43 | XMS_ITS | Encounter Summary ---
Author Organization [facility] Address [address] [place] [address] Care Team Providers Care Weighmaster Lead Name Role Phone Vilma [place] DO Primary Care Provider [phone] Encounter Details Date Type Department Care Team (Latest Contact Info) Description 03/28/2004 Outpatient Historical [facility] [address] [place] [address] Yonis Landers MD NO ADDRESS ON FILE SCREENING FOR OSTEOPOROSIS (Primary Dx) Social History Tobacco Use Types Packs/Day Years Used Date Smoking Tobacco: Never Assessed Comments Unknown Sex and Gender Information Value Date Recorded Sex Assigned at Not on file Legal Sex Female 5:16 AM DISCHARGE SPECIALIST Gender Identity Not on file Sexual Orientation Not on file documented as of this encounter Plan of Treatment Not on file documented as of this encounter Visit Diagnoses Diagnosis Special screening for osteoporosis- Primary documented in this encounter Care Teams Weighmaster Lead Relationship Specialty Start Date End Date Vilma [place] DO [address] [place] [address] PCP - General 03/27/09 documented as of this encounter
--- OUTSIDE RECORDS SUMMARY | 2025-04-25 21:43 | XMS_ITS | Encounter Summary ---
Author Organization [facility] Address [address] [place] [address] Care Team Providers Care Registered Occupational Therapist Name Role Phone Vilma [place] DO Primary Care Provider Encounter Details Date Type Department Care Team (Late st Contact Info) Description 07/06/2003 Emergency [facility] Emergency Department [address] [place] [address] Tima Higgins MD [address] [facility] [address] [place] [address] CHEST PAIN NOS (Primary Dx) Social History Tobacco Use Types Packs/Day Years Used Date Smoking Tobacco: Never Assessed Comments Unknown Sex and Gender Information Value Date Recorded Sex Assigned at Not on file Legal Sex Female 5:16 AM FINANCIAL BROKERS Gender Identity Not on file Sexual Orientation Not on file documented as of this encounter Plan of Treatment Not on file documented as of this encounter Visit Diagnoses Diagnosis Chest pain, unspecified- Primary documented in this encounter Care Teams Registered Occupational Therapist Relationship Specialty Start Date End Date Vilma [place] DO [address] [place] [phone] PCP - General 03/27/09 documented as of this encounter
--- OUTSIDE RECORDS SUMMARY | 2025-04-25 21:43 | XMS_ITS | Encounter Summary ---
Author Organization [facility] Address [address] [place] [address] Care Team Providers Care Scientific Diver Name Role Phone Vilma [place] DO Primary Care Provider Encounter Details Date Type Department Care Team (Latest Contact Info) Description 12/28/2001 Outpatient Historical [facility] [address] [facility], [address] [place] [address] [place] [address] [place] [address] Skin sensation disturb (Primary Dx) Social History Tobacco Use Types Packs/Day Years Used Date Smoking Tobacco: Never Assessed Comments Unknown Sex and Gender Information Value Date Recorded Sex Assigned at Not on file Legal Sex Female 5:16 AM DRILL RUNNER HELPER Gender Identity Not on file Sexual Orientation Not on file documented as of this encounter Plan of Treatment Not on file documented as of this encounter Visit Diagnoses Diagnosis Skin sensation disturb- Primary Disturbance of skin sensation documented in this encounter Care Teams Scientific Diver Relationship Specialty Start Date End Date Vilma [place] DO [address] [place] [address] PCP - General 03/27/09 documented as of this encounter
--- OUTSIDE RECORDS SUMMARY | 2025-04-25 21:43 | XMS_ITS | Encounter Summary ---
Author Organization [facility] Address [address]: [place] [address] Care Team Providers Care Edi Coordinator Name Role Phone Vilma [place] DO Primary Care Provider Encounter Details Date Type Department Care Team (Late st Contact Info) Description 09/10/2001 [place] [address] [place] [address] Social History Tobacco Use Types Packs/Day Years Used Date Smoking Tobacco: Never Assessed Comments Unknown Sex and Gender Information Value Date Recorded Sex Assigned at Not on file Legal Sex Female 5:16 AM SENIOR PARALEGAL Gender Identity Not on file Sexual Orientation Not on file documented as of this encounter Plan of Treatment Not on file documented as of this encounter Visit Diagnoses Not on filedocumented in this encounter Care Teams Edi Coordinator Relationship Specialty Start Date End Date Vilma [place] DO [address] [place] [address] PCP - General 03/27/09 documented as of this encounter
--- OUTSIDE RECORDS SUMMARY | 2025-04-25 21:43 | XMS_ITS | Clinical Summary ---
Author Organization [facility] Address [address] [place] [address] Care Team Providers Care Strike Planning Applications Name Role Phone Vilma Carter DO Primary Care Provider [phone] Allergies Active Allergy Reactions Criticality Noted Date Comments Gabapentin Confusion,Dizziness, Wea kness High 03/27/2009 Morphine Anaphylaxis,Shortnes s of Breath/Wheezing,Other (See Comments) High 03/27/2009 Arms go numb Sulfamethoxazole-Trimeth oprim Rash,Fever Low 03/27/2009 Tramadol Nausea and Vomiting Medium 03/27/2009 Medications lancets Test sugar once daily. E11.9. 100 Each 2 9 Active omega-3 fatty acids-fish oil 300-1,000 mg Capsule Take by mouth daily. 9 Active aspirin (JEANA CHEWABLE) 81 mg Tablet, ChewableIndication s:Essential hypertension Take 1 Tablet (81 mg) by mouth daily. 192 Tablet 0 9 Active brimonidine (ALPHAGAN) 0.2 % solution 3 Active timoloL maleate (TIMOPTIC) 0.5% solution 3 Active latanoprost 0.005 % eye drops 1 Drop daily at bedtime. Active magnesium oxide 400 mg magnesium TabletIndications: Pain in both lower legs Take 400 mg by mouth daily. 90 Tablet 1 4 Active hydroCHLOROthiazid e 25 mg tablet TAKE 2 TABLETS DAILY 180 Tablet 3 4 Active oxyBUTYnin (DITROPAN XL) 5 mg Extended Release 24 hour tabletIndications: Continuous leakage of urine Take 1 Tablet (5 mg) by mouth daily. 30 Tablet 11 4 Active lactulose (ENULOSE) 10 gram/15 mL oral solutionIndication s:Chronic idiopathic constipation Take 15 mL by mouth 2 times daily. 450 mL 3 5 Active atorvastatin (LIPITOR) 40 mg tabletIndications: Mixed hyperlipidemia Take 1 Tablet (40 mg) by mouth daily. 100 Tablet 2 5 Active levothyroxine 50 mcg tabletIndications: Acquired hypothyroidism Take 1 Tablet (50 mcg) by mouth daily in the morning. 90 Tablet 3 5 Active potassium CHLORIDE (KLOR-CON) 10 mEq Extended Release tabletIndications: Swelling of both lower extremities Take 1 Tablet (10 mEq) by mouth daily with breakfast. 5 Tablet 5 Active mupirocin (BACTROBAN) 2 % OintmentIndication s:Leg wound, right, subsequent encounter,Wound of left leg, subsequent encounter Apply to affected area daily. 30 Gram 5 Active budesonide-formote roL (Breyna) 160-4.5 mcg/actuation HFA Aerosol InhalerIndications :Mild intermittent asthma without complication Take 2 Puffs by inhalation 2 times daily. 10.2 Gram 11 5 Active OTHERIndications:M enopausal symptoms Sig: TRI-EST()PROGEST 4/100MG Capsules. Take 1 capsule daily. 90 Each 4 5 Active blood sugar diagnostic (OneTouch Verio test strips) StripIndications:T ype 2 diabetes mellitus without complication, without long-term current use of insulin ([facility]) USE 1 STRIP TO CHECK GLUCOSE ONCE DAILY 100 Each 3 5 Active bisacodyL (DULCOLAX) 5 mg Delayed Release tabletIndications: Chronic idiopathic constipation Take 1 to 3 tablet by mouth daily as needed for constipation. 90 Tablet 3 5 Active Active Problems Problem Noted Date Diagnosed Date Achilles tendinitis of left lower extremity 07/17 Continuous leakage of urine 04/22/2024 Chronic idiopathic constipation 01/20/2024 Pain in both lower legs 01/20/2024 Dizziness 01/08/2022 Difficulty in walking 01/08/2022 Situational anxiety 01/21/2021 Chronic midline low back pain with bilateral sci atica 01/21/2021 Mild intermittent asthma without complication Intractable migraine without aura and without status migrainosus 07/05/2016 COCO on CPAP 07/05/2016 Type 2 diabetes mellitus wit hout complication, without long-term current use of insulin 05/17/2016 Essential hypertension 02/25/2014 Primary insomnia 08/16/2009 Fibromyalgia 08/16/2009 Migraine without aura and wi thout status migrainosus, not intractable 08/16/2009 Acquired hypothyroidism 08/16/2009 Mixed hyperlipidemia 08/16/2009 Primary osteoarthritis involving multiple joints 08/16/2009 Resolved Problems Problem Noted Date Diagnosed Date Resolved Date Constipation 08/07/2016 01/21/2021 Elevated liver enzymes 08/07/201601/21 Severe obesity (BMI 35.0-39. 9) with comorbidity 05/17/2016 01/21/2021 Encounters Date Type Department Care Team Description 03/07/2025 Refill [facility] [address] [place] [address] Pranay Sanders, MARIA ELENA Continuous leakage of urine 03/01/2025 Results Follow-Up [facility] [address] [place] [address] Pranay Sanders FNP HEMOGLOBIN A1C, TSH 02/28/2025 9:20 AM CDT Office Visit [facility] [address] [place] [address] Pranay Sanders, HANDS HANGER Type 2 diabetes mellitus without complication, without long-term current use of insulin ([facility]) (Primary Dx); Essential hypertension; Acquired hypothyroidism; Chronic idiopathic constipation 02/21/2025 Refill [facility] [address] [place] [address] Vilma Carter, Type 2 diabetes mellitus without complication, without long-term current use of insulin ([facility]) 02/03/2025 Orders Only [facility] [address] [facility] [place] [phone] DawsonAugust, HANDS HANGER Swelling of both lower extremities; Chest pain, unspecified type 02/01/2025 External Device Data STL ABSTRACTION Provider, Abstract from Last 3 Months Immunizations Immunization Administration Dates Next Due (ADACEL/BOOSTRIX)(10 YR UP) TDAP VACCINE, 0.5ML, IM 09/09/2014 (PNEUMOVAX 23)(50 YRS UP) PN EUMOCOCCAL POLYSACCHARIDE (PPV23) 0.5 ML, IM 02/10/2019,02/25/2014 (PREVNAR 13)(6 WKS UP) PNEUM OCOCCAL CONJUGATE (PCV13) 0.5 ML, IM 01/23/2018 (SPIKEVAX) (12 YRS UP PRIMAR Y SERIES) COVID-19 VACCINE - MRNA-1273(PF) 100 MCG/0.5 ML IM SUSP 06/18/2021 INFLUENZA VACCINE HIGH DOSE QUADRIVALENT 65 YR UP PF IM 04/03/2022,01/18/2021 Influenza Seasonal Unspecifi ed Formulation IM 02/03/2015 [...] Family History Medical History Relation Name Comments Other Brother 1 BORN W/O CEREBE LLUM/ MUSCULAR PROBLEMS Cancer Brother 2 PROSTRATE CANCE R Diabetes Father Heart Disease Father Heart Disease Mother Breast Cancer Sister 1 SOFIA Cancer Sister 2 CERVICAL Cancer Sister 3 CERVICAL Heart Disease Sister 3 Diabetes Son Ovarian Cancer Neg Hx Relation Name Status Comments Brother 1 Brother 2 Alive Brother 3 Alive Brother 4 Alive Daughter Alive Father Maternal Grandmother Mother Sister 1 SOFIA Alive Sister 2 Alive Sister 3 Sister 4 Alive Sister 5 Alive Son Alive Social History Tobacco Use Types Packs/Day Years Used Date Smoking Tobacco: Never Passive Smoke Exposure: Never Smokeless Tobacco: Never Tobacco Cessation:Counseling Given: No Alcohol Use Standard Drinks/Week Comments No 0 (1 standard drink = 0.6 oz pur e alcohol) Financial Resource Strain Answer Date R ecorded How hard is it for you to pa y for the very basics like food, housing, medical care, and heating? Patient declined 07/30/2022 Food Insecurity Answer Date Recorded In the past 12 months, have you worried that your food would run out before you had money to buy more? Patient declined 2022 In the past 12 months, did y ou run out of food and didn't have money to buy more? Patient declined 07/30/2022 Transportation Needs Answer Date Record ed In the past 12 months, has l ack of transportation kept you from medical appointments or from getting medications? 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 Gender Identity Not on file Sexual Orientation Not on file Last Filed Vital Signs Vital Sign Reading Time Taken Comments Blood Pressure 136/64 02/28/2025 8:49 AM CDT Pulse 66 02/28/2025 8:49 AM CDT Temperature 36.8 C (98.2 F) 02/28/2025 8:49 AM CDT Respiratory Rate 18 02/28/2025 8:49 AM CDT Oxygen Saturation 98% 02/28/2025 8:49 AM CDT Inhaled Oxygen Concentration - - Weight 70.5 kg (155 lb 6.4 oz) 02/28/2025 8:49 A M CDT Height 162.6 cm (5' 4 ) 02/28/2025 8:49 AM CDT Body Mass Index 26.67 02/28/2025 8:49 AM CDT Plan of Treatment Upcoming Encounters Date Type Department Care Team (Late st Contact Info) Description 04/27/2025 1:00 PM DIRECTOR OF ROTC Office Visit [facility] [address] [place] [phone] EmmaVilma lagos, DO [address] [place] [facility] [phone] 10/26/2025 11:00 AM CDT Office Visit [facility] [address] [facility] [place] [address] EmmaVilma lagos, DO [address] [place] [facility] [place] [address] Health Maintenance Due Date Last Done Comments ZOSTER VACCINE (2 of 3) 11/18/2014 09/23/2014 RSV VACCINE (60+ or ) (1 - 1-dose 75+ series) 2016 OSTEOPOROSIS SCREENING 03/08/2019 03/08/2014, 2013 DIABETES ANNUAL FOOT EXAM 07/17/20222021, 07/18/2020, 07/18/2020, Additional history exists Traditional Medicare (ACO) A nnual Wellness Visit 08/01/2023 07/30/2022, 07/17/2021 DTAP/TDAP/TD VACCINES (2 - T d or Tdap) 09/09/2024 09/09/2014 INFLUENZA VACCINE (#1) 2024 , 01/18/2021, 01/31/2020, Additional history exists COVID-19 Vaccine ( - 2024-2 6 season) 2025 06/18/2021, 08/09/2020, 07/12/2020 DIABETES MICROALBUMIN ANNUAL SCREEN 07/26/2025 07/26/2024, 04/22/2024, 07/17/2021, Additional history exists DIABETES HBA1C Q 6 MONTHS 08/29/20252024, 11/24/2024, 07/26/2024, Additional history exists DIABETES ANNUAL RETINAL EXAM 11/15/2025, 04/14/2023, 04/14/2023, Additional history exists LDL CHOLESTEROL ANNUAL 11/24/2025 5, 04/22/2024, 01/07/2023, Additional history exists DIABETES: A1C (Auto Order) 02/28/202602/28, 11/24/2024, 07/26/2024, Additional history exists PNEUMOCOCCAL VACCINE 50+ YEARS Completed 0 02/10/2019, 02/10/2019, 01/23/2018, Additional history exists Procedures Procedure Name Priority Date/Time Associated Diagnosis Comments TSH Routine 02/28/2025 9:30 AM CDT Type 2 diabetes mellitus without complication, without long-term current use of insulin ([facility]) Essential hypertension Acquired hypothyroidism HEMOGLOBIN A1C Routine 02/28/2025 9:30 AM CDT Type 2 diabetes mellitus without complication, without long-term current use of insulin ([facility]) ECHO COMPLETE Routine 01/31/2025 Swelling of both lower extremities Chest pain, unspecified type LIPID PANEL Routine 11/24/2024 10:10 AM CDT Type 2 diabetes mellitus without complication, without long-term current use of insulin Essential hypertension Mixed hyperlipidemia Acquired hypothyroidism MICROALBUMIN/CREATI NINE RATIO, RANDOM UR Routine 07/26/2024 12:02 PM CDT Type 2 diabetes mellitus without complication, without long-term current use of insulin ([facility]) DIABETES EYE EXAM Routine 06/27/2021 DIABETES FOOT EXAM 07/18/2020 12:00 AM DIRECTOR OF ROTC XR DEXA BONE DENSITY AXIAL 1 OR MORE SITES Routine 03/08/2014 12:39 PM CDT Disorder of bone and cartilage from Last 3 Months or Most Recently Relevant to Health Maintenance Results * TSH (02/28/2025 9:30 AM CDT) TSH 1.51 0.40 - 4.50 mIU/L [facility] Comment: Test Performed at: [facility] [address] [address] [address] Rimma Gastelum MD Blood 02/28/2025 9:30 AM CDT 02/28/2025 9:31 AM CDT Pranay Sanders [facility] CHEMISTRY ORDERABLES Final Result Performing Organization Address City/[facility]/ZIP Co de Phone Number [facility] [phone] [facility] [id number] [place] [phone] * (ABNORMAL) HEMOGLOBIN A1C (02/28/2025 9:30 AM CDT) HEMOGLOBIN A1C 6.4(H) <5.7 % [facility] Comment: For someone without known diabetes, a hemoglobin A1c value between 5.7% and 6.4% is consistent with prediabetes and should be confirmed with a follow-up test. For someone with known diabetes, a value <7% indicates that their diabetes is well controlled. A1c targets should be individualized based on duration of diabetes, age, comorbid conditions, and other considerations. This assay result is consistent with an increased risk of diabetes. Currently, no consensus exists regarding use of hemoglobin A1c for diagnosis of diabetes for children. ESTIMATED AVERAGE GLUCOSE (MG/DL) 137 mg/dL [facility] ESTIMATED AVERAGE GLUCOSE (MMOL/L) 7.6 mmol/L [facility] Comment: FASTING:NO FASTING: NO Test Performed at: [facility] [address] Rimma Gastelum MD Blood 02/28/2025 9:30 AM CDT 02/28/2025 9:31 AM CDT Juangrecia Sanders [facility] CHEMISTRY ORDERABLES Final Result Performing Organization Address City/[facility]/ZIP Co de Phone Number [facility] [phone] [facility] [address] * ECHO COMPLETE - CONTRAST AND STRAIN IF INDICATED (01/31/2025) Maria Alejandra Dawson [facility] US ORDERABLES Final Result * LIPID PANEL (11/24/2024 10:10 AM CDT) CHOLESTEROL 115 <200 mg/dL [facility] HDL 60 > OR = 50 mg/dL [facility] TRIGLYCERIDE 74 <150 mg/dL [facility] LDL CALCULATED 40 mg/dL (calc) [facility] Comment: Reference range: <100 Desirable range <100 mg/dL for primary prevention; <70 mg/dL for patients with CHD or diabetic patients with > or = 2 CHD risk factors. LDL-C is now calculated using the Louie calculation, which is a validated novel method providing better accuracy than the Friedewald equation in the estimation of LDL-C. Harris SS et al. RIAN. 2013;310(19): 7422-8183 (http://education.the Shelf/faq/QBU980) CHOL/HDL RATIO 1.9 <5.0 (calc) [facility] NON-HDL CHOLESTEROL 55 <130 mg/dL (calc) [facility] Comment: For patients with diabetes plus 1 major ASCVD risk factor, treating to a non-HDL-C goal of <100 mg/dL (LDL-C of <70 mg/dL) is considered a therapeutic option. Test Performed at: [facility] [address] [place] [address] Rimma Gastelum MD Blood 11/24/2024 10:1 0 AM CDT 11/24/2024 10:11 AM CDT Pranay Sanders [facility] CHEMISTRY ORDERABLES Final Result [facility] [phone] [facility] [address] [place] [address] * MICROALBUMIN/CREATININE RATIO, RANDOM UR (07/26/2024 12:02 PM CDT) Creatinine, Urine 68 20 - 275 mg/dL [facility] MICROALBUMIN, URINE 0.4 See Note: mg/dL [facility] Comment: Reference Range: Reference Range Not established MICROALBUMIN/CREAT RATIO, UR 6 <30 mg/g creat [facility] Comment: The ADA defines abnormalities in albumin excretion as follows: Albuminuria Category Result (mg/g creatinine) Normal to Mildly increased <30 Moderately increased 30-299 Severely increased > OR = 300 The ADA recommends that at least two of three specimens collected within a 3-6 month period be abnormal before considering a patient to be within a diagnostic category. Test Performed at: [facility] [address] [place] [address] Rimma Gastelum MD Urine URINE SPECIMEN OBTAINED BY CLEAN CATCH PROCEDURE / Unknown 07/26/2024 12:02 PM CDT 07/27/2024 5:04 AM CDT Pranay Sanders HANDS HANGER URINE ORDERABLES Final Res ult [facility] [phone] [facility] [address] [place] [address] * DIABETES EYE EXAM (06/27/2021) Abstract Provider HEALTH MAINTENANCE Final Resul t * HM DIABETES FOOT EXAM (07/18/2020 12:00 AM DIRECTOR OF ROTC) Vilma Carter DO HEALTH MAINTENANCE Edited R esult - Final * XR DEXA BONE DENSITY AXIAL 1 OR MORE SITES (03/08/2014 12:39 PM CDT) Anatomical Region Laterality Modality Other Narrative 03/08/2014 1:07 PM CDT PROCEDURE DEXA [...] density Procedure Note Ernesto Costello MD - 07/23/2022 PROCEDURE DEXA BONE DENSITY, 08 March 2014 [...] of +0.7. IMPRESSION normal bone mineral density us Tatiana Sales HANDS HANGER DIAGNOSTIC IMAGING ORDERABLES Final Result from Last 3 Months or Most Recently Relevant to Health Maintenance Insurance MEDICARE PART A AND B [facility] LIFE INS SUPP KEHINDE PEREA [id number] Care Teams Strike Planning Applications Relationship Specialty Start Date End Date Vilma Carter DO [address] [place] [address] (work) PCP - General 03/27/09
--- OUTSIDE RECORDS SUMMARY | 2025-04-25 21:43 | XMS_ITS | Encounter Summary ---
Author Organization [facility] Address [address] [place] [address] Care Team Providers Care Pigs Feet Finisher Name Role Phone Vilma Carter DO Primary Care Provider Encounter Details Date Type Department Care Team (Latest Contact Info) Description 04/11/2004 Outpatient Historical [facility] Gen Spec Surg 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
--- OUTSIDE RECORDS SUMMARY | 2025-04-25 21:43 | XMS_ITS | Encounter Summary ---
Author Organization [facility] Address [address] [place] [address] Care Team Providers Care Centura Technical Lead Senior Developer Name Role Phone Vilma Carter DO Primary Care Provider Encounter Details Date Type Department Care Team (Latest Contact Info) Description 09/10/2001 Outpatient Historical [facility] Neurology [address], [address] [place] [address] [place] [address] [place] [address] Idio prog polyneuropathy (Primary Dx); Pain in limb Social History Tobacco Use Types Packs/Day Years Used Date Smoking Tobacco: Never Assessed Comments Unknown Sex and Gender Information Value Date Recorded Sex Assigned at Not on file Legal Sex Female 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
--- OUTSIDE RECORDS SUMMARY | 2025-04-25 21:43 | XMS_ITS | Encounter Summary ---
Author Organization [facility] Address 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
--- OUTSIDE RECORDS SUMMARY | 2025-04-25 21:43 | XMS_ITS | Encounter Summary ---
Author Organization [facility] Address [address] [place] [address] Care Team Providers Care Receiver/Laborer Name Role Phone Vilma Carter DO Primary Care Provider Encounter Details Date Type Department Care Team (Latest Contact Info) Description 07/01/2002 Outpatient Historical [facility] Neurology [address], [address] [place] [address] [place] [address] [place] [address] Idio prog polyneuropathy (Primary Dx); Pain in limb Social History Tobacco Use Types Packs/Day Years Used Date Smoking Tobacco: Never Assessed Comments Unknown Sex and Gender Information Value Date Recorded Sex Assigned at Not on file Legal Sex Female 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
--- OUTSIDE RECORDS SUMMARY | 2025-04-25 21:43 | XMS_ITS | Encounter Summary ---
Author Organization [facility] Address [address] [place] [address] Care Team Providers Care Manufacturing Specialist Name Role Phone Vilma Carter DO Primary Care Provider Encounter Details Date Type Department Care Team (Latest Contact Info) Description 11/16/2001 Outpatient Historical [facility] Neu[facility] 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
[2025-04-25 21:54] LABS: Respiratory Syncytial Virus Ce NEGATIVE (Negative); SARS-CoV-2 PCR NEGATIVE (Negative)
[2025-04-25 22:02] VITALS: BP 121/70; BP 147/78; BP 150/66; BP 160/88; PULSE 52; PULSE 61; PULSE 62; PULSE 64; O2SAT 96
--- NOTE | 2025-04-25 22:07 | ECG_ITS ---
[facility]: 2025-[facility]25 Pat Name: Mary Merida Department: Room: Gender: Female Shore Working Supervisor: : 1940 Requested By: Kitty Reeves Order Number: [id number] Pierre MD: Jose Gallegos M.D. Measurements Intervals [place] Rate: 50 P: 55 MT: 174 QRS: -12 QRSD: 87 T: 7 QT: 436 QTc: 400 Interpretive Statements SINUS BRADYCARDIA Compared to ECG 05/27/2023 18:10:36 NO SIGNIFICANT CHANGE Electronically Signed On 04-27-2025 22:41:48 SHOOK SPLICER by Jose Gallegos M.D. [email or web address]
[2025-04-25 22:12] LABS: Glucose Urine UA Negative (Normal); Nitrate Urine Negative (Negative); Specific Gravity, Urine 1.008 (1.005-1.030)
[2025-04-25 22:29] LABS: UA Slide Review UA Slide Review Perf
--- NOTE | 2025-04-25 22:29 | PC.NURSE ---
Pt ambulated to restroom, pt did okay, upon pt going to sit down on commode pt voices having dizzy unwell feeling, once sitting pt was okay. Pt used walker, pt voices using cane at home and did bring cane to ER, pt voiced wanting to use walker to restroom. Pt ambulated back to room w/o difficulty.
[2025-04-25 22:30] VITALS: BP 132/77; PULSE 51; O2SAT 97
[2025-04-25] MEDS: cefTRIAXone 1,000 mg SDV 1000 MG IVP (22:43)
[2025-04-25 23:00] VITALS: PULSE 50; O2SAT 97
== END 2025-04-25 23:36 | disposition home or self-care (01) ==
PROVIDERS: Emergency Provider Emergency Medicine; PCP Family Medicine
DX: N39.0 Urinary tract infection, site not specified (principal); E86.0 Dehydration; R42 Dizziness and giddiness; Z79.82 Long term (current) use of aspirin; Z79.84 Long term (current) use of oral hypoglycemic drugs; Z11.52 Encounter for screening for COVID-19; E78.5 Hyperlipidemia, unspecified; I10 Essential (primary) hypertension; Z85.820 Personal history of malignant melanoma of skin; Z85.828 Personal history of other malignant neoplasm of skin
CPT/HCPCS: 36415; 70450; 71045; 80053; 81001; 83605; 85025; 87040; 87637; 93005; 96374; 99285; J0696; J7030

== ENCOUNTER → 2025-04-26 09:03 | Outpatient (BNVA) | payer MEDICARE, OTHER, SELFPAY | PROVIDERS: PCP Family Medicine; Visit Provider Nurse Practitioner Family | DX: L82.1 Other seborrheic keratosis (principal); L81.4 Other melanin hyperpigmentation; L57.8 Other skin changes due to chronic exposure to nonionizing radiation; Z85.820 Personal history of malignant melanoma of skin; Z08 Encounter for follow-up examination after completed treatment for malignant neoplasm; Z85.828 Personal history of other malignant neoplasm of skin; Z87.2 Personal history of diseases of the skin and subcutaneous tissue; D48.5 Neoplasm of uncertain behavior of skin; L57.0 Actinic keratosis | CPT/HCPCS: 11102; 17000; 99213 ==